=== PATIENT | female | born 1980 | race Caucasian/White ===

== ENCOUNTER → 2016-12-08 | Outpatient (CLI) | payer OTHER ==
--- NOTE | 2017-01-22 01:16 | P.PN ---
Progress Note - Text DATE OF SERVICE: 12/08/2016 REASON FOR CONSULTATION: Initial bariatric evaluation. HISTORY OF PRESENT ILLNESS: Jazmin Sandoval is a 36-year-old female who presents with morbid obesity. Her highest weight was 270 pounds last year. Today she comes in weighing 256 pounds. At her height of 5 foot 5 inches, her ideal body weight is 149 pounds. She is 106 pounds overweight. Her highest body mass index was 45.2. Today her BMI is 42.6. As a result of her obesity, she hsa developed osteoarthritis of her joints including obstructive sleep apnea. She reports being on Adipex for weight control. Since being on Adipex, she is loss 5-10 pounds. As a result of her obesity she has developed back pain including bilateral hip and knee pain. She comes in for evaluation for gastric bypass. She does have family and friend support including who access to those who have had an adjustable gastric band including gastric bypass. She reports however chronic diarrhea. She had a previous cholecystectomy. She reports having a milk ALLERGY. She denies any family or personal history of Crohn's disease or ulcerative colitis. She's not had previous upper endoscopy. She denies any lupus in her family. No reports of stomach or esophageal cancer. She does report that her grandmother had her stomach removed for unclear reasons. She has a family history of morbid obesity including diabetes. She reports underlying troubles with swallowing. As a result of her dysphagia, her thyroid was removed, however, she still has persistent symptoms. She reports having a fairly active lifestyle despite her obesity. She now presents for evaluation for bariatric options. PAST MEDICAL HISTORY: 1. Morbid obesity. 2. Body mass index of 45.2 3. Thyroid neoplasm. 4. Obstructive sleep apnea. 5. Osteoarthritis of the hips 6. Hypertensive heart disease. 7. Gastroesophageal reflux disease 8. Anxiety. 9. Depression. 10. Migraines. 11. Vitamin D deficiency. 12. Hypothyroidism. PAST SURGICAL HISTORY: 1. Cholecystectomy. 2. Left thyroidectomy. 3. Left elbow surgery. 4. Tonsillectomy. 5. Tubal ligation. 6. Eustachian tubes in the ear. HOME MEDICATIONS: 1. Omeprazole. 2. Multivitamin. 3. Synthroid. 4. Vitamin D. ALLERGIES: 1. Latex. 2. Hydrocodone. 3. Adhesives. SOCIAL HISTORY: No active tobacco use. Alcohol use. FAMILY HISTORY: No family history of ulcerative colitis disease or Crohn's disease. She does have a family history of morbid obesity. She denies any lupus in her family. No reports of stomach or esophageal cancer. She does report that her grandmother had her stomach removed for unclear reasons. She has a family history of diabetes. REVIEW OF ORGAN SYSTEMS: CONSTITUTIONAL: Her highest weight was 270 pounds last year. Today she comes in weighing 256 pounds. At her height of 5 foot 5 inches, her ideal body weight is 149 pounds. She is 106 pounds overweight. Her highest body mass index was 45.2. Today her BMI is 42.6. HEENT: Denies any active troubles with vision or hearing. Has troubles with swallowing. ENDOCRINE: No diabetes. Has hypothyroidism. CARDIOVASCULAR: No reports of palpitations or heart attacks or chest pain. History of hypotension. RESPIRATORY: Has daytime somnolence including snoring and sleep apnea. No asthma. GI: Denies any bright red blood per rectum or constipation. Does have gastroesophageal reflux disease as described above. Has diarrhea. MUSCULOSKELETAL: Has lower back pain and joint pain. Has osteoarthritis of the hips and knees. Has scoliosis of the spine. NEURO: Has headaches. No seizure disorders. PSYCH: Has depression without suicidal ideation. Has anxiety. RHEUMATOLOGIC: No lupus. No rheumatoid arthritis. HEMATOLOGIC: Denies any abnormal bleeding or bruising. No personal history of DVTs. SKIN: No rash. No skin cancer. PHYSICAL EXAM: VITAL SIGNS: Height 5 foot 5 inches, weight 255 pounds. BMI 42.6 Vital Signs Temp 98.4 F 12/08/16 16:54 Pulse 75 12/08/16 16:54 Resp 16 12/08/16 16:54 BP 106/71 12/08/16 16:54 Pulse Ox GENERAL: Well-developed female in no acute distress. HEENT: No scleral icterus. Extraocular movements grossly intact. Hears conversational speech. No nasal drainage. NECK: Supple without lymphadenopathy. Well-healed collar incision from previous thyroidectomy. CHEST: Nonlabored respirations with equal bilateral excursions. CARDIOVASCULAR: Regular rate. Distal 2+ pulses. ABDOMEN: Obese, soft, nontender, nondistended. MUSCULOSKELETAL: No clubbing, cyanosis, or edema. Gross strength 5/5 distal lower extremities. NEURO: No focal or lateralizing signs. Cranial nerves 2 through 12 grossly within normal limits. PSYCH: Appropriate affect. Alert and oriented to person, place and time. SKIN: Good skin turgor. Well perfused. ASSESSMENT: 1. Morbid obesity due to excess calories. 2. Body mass index of 45.2 3. Gastroesophageal reflux disease. 4. Obstructive sleep apnea. 5. Thyroid neoplasm. 6. Anxiety. 7. Vitamin D deficiency. 8. Depression. 9. Osteoarthritis involving the bilateral hips. 10. Osteoarthritis of the bilateral knees. 11. Dietary surveillance and counseling. 12. Migraines. 13. Hypothyroidism. PLAN: 1. Surgical options including a band, gastric bypass, sleeve gastrectomy were described in detail. Alternatives such as gastric balloon including duodenal switch were described. 2. The [place] [facility] data and outcomes calculator were described with surgical options. 3. Recommend a bariatric metabolic panel to evaluate for micro- including macronutrient deficiencies. 4. For history of sleep apnea, recommend evaluation and treatment. 5. Dietary surveillance and counseling was reviewed, I have asked her to increase her protein intake to at least 70 grams daily. 6. Will need cardiac risk assessment. 7. Recommend medical risk assessment. 8. Psych assessment per insurance guidelines. 9. Follow up upon completion of upper endoscopy. 10. Recommend food journal. Patient reports having a FITBIT to record activity. 11. Full metabolic panel including drug testing per insurance guidelines. Thank you for this consultation.
== END | disposition home or self-care (01) ==
CPT/HCPCS: 99211

== ENCOUNTER → 2016-12-09 | Outpatient (CLI) | payer OTHER ==
[2016-12-09 13:38] LABS: EKG EKG PERFORMED
[2016-12-09 14:03] LABS: CH 29.8; CHCM 33.7; HCT 37.4 % (34.0-46.0); HDW 2.87; MCH 30.9 pg (25.0-35.0); MCHC 34.9 g/dL (31.0-37.0); MCV 88.7 fL (80.0-100.0); Mean Platelet Volume 7.3; RBC 4.21 m/uL (3.80-5.40); RDW 12.9 % (11.5-15.5); WBC 6.2 k/uL (3.8-10.6)
[2016-12-09 15:12] LABS: ALT 41 U/L (9-52); AST 26 U/L (14-36); Alkaline Phosphatase 60 U/L (38-126); Anion Gap 11 mmol/L; Blood Urea Nitrogen 13 mg/dL (7-17); Calcium 9.7 mg/dL (8.4-10.2); Carbon Dioxide 28 mmol/L (22-30); Chloride 102 mmol/L (98-107); Cholesterol 185 mg/dL (<200); Glucose 107 mg/dL (74-99); HDL Cholesterol 45 mg/dL (40-60); Iron 76 ug/dL (37-170); Non-African American GFR(MDRD) >60 (>60 ml/min/1.73 sqM); Potassium 4.1 mmol/L (3.5-5.1); Sodium 141 mmol/L (137-145); Total Bilirubin 0.5 mg/dL (0.2-1.3); Total Protein 6.6 g/dL (6.3-8.2)
[2016-12-09 15:22] LABS: % Iron Saturation 24.1 % (20-50); Total Iron Binding Capacity 315 ug/dL (265-497)
[2016-12-09 16:19] LABS: Vitamin B12 536 pg/mL (239-931)
[2016-12-09 18:13] LABS: Hemoglobin A1C 5.3 % (4.2-6.1)
[2016-12-13 07:45] LABS: Anabasine Urine <2.0 ng/mL (<2.0)
== END | disposition home or self-care (01) ==
LOC: LABWHC1 13:21
PROVIDERS: ATTEND Surgery Plastic and Reconstructive Surgery
DX: E89.1 Postprocedural hypoinsulinemia (principal); E88.81 Metabolic syndrome and other insulin resistance; D50.8 Other iron deficiency anemias; G47.30 Sleep apnea, unspecified; R94.31 Abnormal electrocardiogram [ECG] [EKG]; E55.9 Vitamin D deficiency, unspecified; E66.01 Morbid (severe) obesity due to excess calories; Z68.42 Body mass index [BMI] 45.0-49.9, adult; Z02.83 Encounter for blood-alcohol and blood-drug test
CPT/HCPCS: 84425; 80061; 80053; 82607; 82728; 83036; 82746; 83540; 83550; 84443; 85027; 82306; 93005; 36415; G0480; 80307; 80323; 80356

== ENCOUNTER → 2016-12-30 | Outpatient (CLI) | payer OTHER ==
[2016-12-30 11:33] VITALS: BP 103/79; PULSE 72; RESP 16; BMI 43.0
--- NOTE | 2017-01-22 22:33 | P.PN ---
Progress Note - Text DATE OF SERVICE: 12/30/2016 CHIEF COMPLAINT: Bariatric evaluation. HISTORY OF PRESENT ILLNESS: Jazmin Sandoval is a 36-year-old female who presented in November 2016 at the bariatric center. Her highest weight was 270 pounds. Today she comes in weighing 258 pounds. She has gained 2 pounds in 1 month. At her height of 5 foot 5 inches, her ideal body weight is 149 pounds. She is 109 pounds overweight. Her highest body mass index was 45.2. Today her BMI is 43.0. She is undergoing medical supervised weight loss. PAST MEDICAL HISTORY: 1. Morbid obesity. 2. Body mass index of 45.2 3. Thyroid neoplasm. 4. Obstructive sleep apnea. 5. Osteoarthritis of the hips 6. Hypertensive heart disease. 7. Gastroesophageal reflux disease 8. Anxiety. 9. Depression. 10. Migraines. 11. Vitamin D deficiency. 12. Hypothyroidism. PAST SURGICAL HISTORY: 1. Cholecystectomy. 2. Left thyroidectomy. 3. Left elbow surgery. 4. Tonsillectomy. 5. Tubal ligation. 6. Eustachian tubes in the ear. HOME MEDICATIONS: 1. Omeprazole. 2. Multivitamin. 3. Synthroid. 4. Vitamin D. ALLERGIES: 1. Latex. 2. Hydrocodone. 3. Adhesives. SOCIAL HISTORY: No active tobacco use. Alcohol use. FAMILY HISTORY: No family history of ulcerative colitis disease or Crohn's disease. She does have a family history of morbid obesity. She denies any lupus in her family. No reports of stomach or esophageal cancer. She does report that her grandmother had her stomach removed for unclear reasons. She has a family history of diabetes. REVIEW OF ORGAN SYSTEMS: CONSTITUTIONAL: Her highest weight was 270 pounds. Today she comes in weighing 258 pounds. She has gained 2 pounds in 1 month. At her height of 5 foot 5 inches, her ideal body weight is 149 pounds. She is 109 pounds overweight. Her highest body mass index was 45.2. Today her BMI is 43.0. HEENT: Denies any active troubles with vision or hearing. Has troubles with swallowing. ENDOCRINE: No diabetes. Has hypothyroidism. CARDIOVASCULAR: No reports of palpitations or heart attacks or chest pain. History of hypotension. RESPIRATORY: Has daytime somnolence including snoring and sleep apnea. No asthma. GI: Denies any bright red blood per rectum or constipation. Does have gastroesophageal reflux disease as described above. Has diarrhea. MUSCULOSKELETAL: Has lower back pain and joint pain. Has osteoarthritis of the hips and knees. Has scoliosis of the spine. NEURO: Has headaches. No seizure disorders. PSYCH: Has depression without suicidal ideation. Has anxiety. RHEUMATOLOGIC: No lupus. No rheumatoid arthritis. HEMATOLOGIC: Denies any abnormal bleeding or bruising. No personal history of DVTs. SKIN: No rash. No skin cancer. PHYSICAL EXAM: VITAL SIGNS: Height 5 foot 5 inches, weight 258 pounds. BMI 43.0 Vital Signs Temp Pulse 72 12/30/16 11:11 Resp 16 12/30/16 11:11 BP 103/79 12/30/16 11:11 Pulse Ox GENERAL: Well-developed female in no acute distress. HEENT: No scleral icterus. Extraocular movements grossly intact. Hears conversational speech. No nasal drainage. NECK: Supple without lymphadenopathy. Neck 15.75 inches. CHEST: Nonlabored respirations with equal bilateral excursions. CARDIOVASCULAR: Regular rate. Distal 2+ pulses. ABDOMEN: Obese, soft, nontender, nondistended. Waist 52.25 inches. MUSCULOSKELETAL: No clubbing, cyanosis, or edema. Gross strength 5/5 distal lower extremities. NEURO: No focal or lateralizing signs. Cranial nerves 2 through 12 grossly within normal limits. PSYCH: Appropriate affect. Alert and oriented to person, place and time. SKIN: Good skin turgor. Well perfused. LABS: Triglycerides elevated 183. Vitamin D deficient 28.3. EKG: Abnormal with questionable anterior infarct. ASSESSMENT: 1. Morbid obesity due to excess calories. 2. Body mass index of 43.0. 3. Gastroesophageal reflux disease. 4. Obstructive sleep apnea. 5. Thyroid neoplasm. 6. Anxiety. 7. Vitamin D deficiency. 8. Depression. 9. Osteoarthritis involving the bilateral hips. 10. Osteoarthritis of the bilateral knees. 11. Dietary surveillance and counseling. 12. Migraines. 13. Hypothyroidism. 14. Abnormal EKG. 15. Metabolic syndrome. PLAN: 1. Recommend referral to the digital strategist for abnormal EKG with possible infarct. 2. Clinical picture consistent with metabolic syndrome. 3. Continue medical supervised weight loss with 10% per insurance requirement. 4. Food journal and exercise advised. 5. Recommend upper endoscopy for further evaluation of gastric pathology.
== END | disposition home or self-care (01) ==
LOC: BARWHC3 10:31
PROVIDERS: ATTEND Surgery Plastic and Reconstructive Surgery
DX: Z09 Encounter for follow-up examination after completed treatment for conditions other than malignant neoplasm (principal); E66.01 Morbid (severe) obesity due to excess calories; Z68.41 Body mass index [BMI] 40.0-44.9, adult; K21.9 Gastro-esophageal reflux disease without esophagitis; G47.33 Obstructive sleep apnea (adult) (pediatric); C73 Malignant neoplasm of thyroid gland; F41.9 Anxiety disorder, unspecified; E55.9 Vitamin D deficiency, unspecified; F32.9 Major depressive disorder, single episode, unspecified; M16.0 Bilateral primary osteoarthritis of hip; M17.0 Bilateral primary osteoarthritis of knee; E03.9 Hypothyroidism, unspecified; G43.909 Migraine, unspecified, not intractable, without status migrainosus; R94.31 Abnormal electrocardiogram [ECG] [EKG]; E88.81 Metabolic syndrome and other insulin resistance; Z71.3 Dietary counseling and surveillance; Z91.040 Latex allergy status; Z88.5 Allergy status to narcotic agent; Z91.09 Other allergy status, other than to drugs and biological substances; Z79.899 Other long term (current) drug therapy; Z98.84 Bariatric surgery status
CPT/HCPCS: 99211

== ENCOUNTER 2017-01-06 11:03 | Day surgery (SDC) | payer OTHER ==
[2017-01-03 14:16] VITALS: BMI 42.9
--- NOTE | 2017-01-06 07:13 | P.GSHP ---
History of Present Illness H&P Date: 01/06/17 CHIEF COMPLAINT: GERD HISTORY OF PRESENT ILLNESS: The patient is a 36-year-old male who presents reports gastroesophageal reflux disease. Upper endoscopy was offered for further evaluation and management. PAST MEDICAL HISTORY: Please see list. PAST SURGICAL HISTORY: Please see list. MEDICATIONS: Please see list. ALLERGIES: Please see list. SOCIAL HISTORY: No illicit drug use FAMILY HISTORY: No reports of Crohn disease or ulcerative colitis. REVIEW OF ORGAN SYSTEMS: CONSTITUTIONAL: No reports of fevers or chills. GI: Denies any blood in stools or constipation. PHYSICAL EXAM: VITAL SIGNS: Stable GENERAL: Well-developed and pleasant in no acute distress. HEENT: No scleral icterus. Extraocular movements grossly intact. Moist buccal mucosa. NECK: Supple without lymphadenopathy. CHEST: Unlabored respirations. Equal bilateral excursions. CARDIOVASCULAR: Regular rate and rhythm. Distal 2+ pulses. ABDOMEN: Soft, nondistended. MUSCULOSKELETAL: No clubbing, cyanosis, or edema. ASSESSMENT: 1. Gastroesophageal reflux disease PLAN: 1. Recommend proceeding with an upper endoscopy Past Medical History Past Medical History: Osteoarthritis (OA), Sleep Apnea/CPAP/BIPAP, Thyroid Disorder Additional Past Medical History / Comment(s): thyroid nodules, hx. anemia, migraines, Sleep Apnea- no machine., neck and lower back pain. History of Any Multi-Drug Resistant Organisms: None Reported Past Surgical History: Cholecystectomy, Orthopedic Surgery, Tonsillectomy, Tubal Ligation Additional Past Surgical History / Comment(s): left elbow surg., cyst removed from neck, LT THYROID LOBECTOMY WITH FROZEN BX. Past Anesthesia/Blood Transfusion Reactions: Family History of Problems w/ Anesthesia, Postoperative Nausea & Vomiting (PONV) Additional Past Anesthesia/Blood Transfusion Reaction / Comment(s): PATIENT HAS PONV AND MIGRAINE HEADACHE. GRANDMOTHER HAS PONV & MIGRAINES ALSO. Past Psychological History: Anxiety, Depression Smoking Status: Never smoker Past Alcohol Use History: Rare Past Drug Use History: None Reported - Past Family History Mother Family Medical History: Cancer Additional Family Medical History / Comment(s): MS Father Family Medical History: Hyperlipidemia Medications and Allergies Home Medications Medication Instructions Recorded Confirmed Type Cholecalciferol (Vitamin D3) 50,000 unit PO WEEKLY 12/30/16 01/03/17 History [Vitamin D3] Levothyroxine Sodium [Synthroid] 200 mcg PO DAILY 12/30/16 01/03/17 History Multivitamins, Thera [Multivitamin 1 tab PO DAILY 01/03/17 01/03/17 History (formulary)] Allergies Allergy/AdvReac Type Severity Reaction Status Date / Time hydrocodone bitartrate Allergy tongue Verified 01/03/17 13:55 [From Vicodin] swelling latex Allergy Rash/Hives Verified 01/03/17 13:55 adhesive AdvReac blisters,red Verified 01/03/17 13:55 skin
[~2017-01-06 11:03] MED LIST: LACTATED RINGERS 1,000 ML IV SCH; LIDOCAINE 1% 20 ML VIAL (10MG/ML) FOR IV START INTRADERMA PRN
[2017-01-06 11:38] VITALS: TEMP 98.2
[2017-01-06] MEDS ORDERED: LIDOCAINE 1% INJ 10MG/ML (20 ML MDV) ONE (11:59)
[2017-01-06] MEDS ORDERED: GLYCOPYRROLATE 0.2 MG/ML 2 ML VIAL ONE (11:59)
[2017-01-06] MEDS ORDERED: PROPOFOL 10 MG/ML 20 ML VIAL IV ONE (11:59)
--- NOTE | 2017-01-06 12:10 | P.PCN ---
Date of Procedure: 01/06/17 Description of Procedure: PREOPERATIVE DIAGNOSIS: Gastroesophageal reflux disease. Morbid obesity. POSTOPERATIVE DIAGNOSIS: Morbid obesity. Gastritis. Gastroesophageal reflux disease. OPERATION: Esophagogastroduodenoscopy with biopsies along antrum. SURGEON: Shalini Castañeda MD ANESTHESIA: MAC. INDICATIONS: The patient is a 36-year-old female who presents with a history of reflux disease. Benefits and risks of the procedure were described. Informed consent was obtained. DESCRIPTION: The patient was brought into the endoscopy suite and laid in the left lateral decubitus position. An Olympus gastroscope was passed along the posterior oropharynx down to the distal esophagus where the squamocolumnar junction was encountered at 40 cm from the incisors. The stomach was entered and no bile reflux was found. Additional findings are listed below. Biopsies with cold forceps were obtained of the antrum. The first through third portion of the duodenum was examined and unremarkable. Retroflexion of the scope confirmed Hill grade 4 lower esophageal valve. The squamocolumnar junction demostrated LA grade B erosive esophagitis. The stomach was desufflated. The patient tolerated the procedure well. FINDINGS: Squamocolumnar junction 40 cm from the incisors. Diaphragmatic hiatus at 40 cm. Hill grade 4 lower esophageal valve. LA grade B erosive esophagitis. Chronic gastritis. No active duodenitis. RECOMMENDATIONS: Upper endoscopy as needed. Start medical therapy for acid reflux disease. Plan - Discharge Summary New Discharge Prescriptions: No Action Levothyroxine Sodium [Synthroid] 200 mcg PO DAILY Cholecalciferol (Vitamin D3) [Vitamin D3] 50,000 unit PO WEEKLY Multivitamins, Thera [Multivitamin (formulary)] 1 tab PO DAILY Discharge Medication List Cholecalciferol (Vitamin D3) [Vitamin D3] 50,000 unit PO WEEKLY 12/30/16 [ History] Levothyroxine Sodium [Synthroid] 200 mcg PO DAILY 12/30/16 [History] Multivitamins, Thera [Multivitamin (formulary)] 1 tab PO DAILY 01/03/17 [History ]
[2017-01-06 12:21] VITALS: BP 101/65
[2017-01-06 12:35] VITALS: PULSE 72; RESP 18
== END 2017-01-06 12:52 | disposition home or self-care (01) ==
LOC: ORWHC2ENDO 11:03
PROVIDERS: ATTEND Surgery Plastic and Reconstructive Surgery
DX: K21.0 Gastro-esophageal reflux disease with esophagitis (principal); E66.01 Morbid (severe) obesity due to excess calories; Z68.41 Body mass index [BMI] 40.0-44.9, adult; F32.9 Major depressive disorder, single episode, unspecified; F41.9 Anxiety disorder, unspecified; M19.90 Unspecified osteoarthritis, unspecified site; G47.33 Obstructive sleep apnea (adult) (pediatric); E07.9 Disorder of thyroid, unspecified; K29.50 Unspecified chronic gastritis without bleeding; Z99.89 Dependence on other enabling machines and devices; Z79.899 Other long term (current) drug therapy; Z88.5 Allergy status to narcotic agent; Z88.8 Allergy status to other drugs, medicaments and biological substances; Z91.040 Latex allergy status
CPT/HCPCS: 81025; 88305; 88342; 43239; J2001; J2704

== ENCOUNTER → 2017-03-02 | Outpatient (CLI) | payer OTHER ==
[2017-03-02 13:06] VITALS: BP 116/84; PULSE 74; RESP 16; TEMP 97.5; BMI 43.4
--- NOTE | 2017-04-25 18:08 | P.PN ---
Subjective Progress Note Date: 03/02/17 DATE OF SERVICE: 03/02/2017 CHIEF COMPLAINT: Bariatric evaluation. HISTORY OF PRESENT ILLNESS: Jazmin Sandoval is a 37-year-old female who presented in November 2016 at the bariatric center. Her highest weight was 270 pounds. Today she comes in weighing 268 pounds. She has gained 10 pounds in 2 months. At her height of 5 foot 5 inches, her ideal body weight is 149 pounds. She is 119 pounds overweight. Her highest body mass index was 45.2. Today her BMI is 44.7. Her target weight loss goal is to get down to 221 pounds. She reports requiring to undergo 6 medical supervised weight loss. She denies any chest pain at this time. She has history of abnormal EKG. PAST MEDICAL HISTORY: 1. Morbid obesity. 2. Body mass index of 45.2 3. Thyroid neoplasm. 4. Obstructive sleep apnea. 5. Osteoarthritis of the hips 6. Hypertensive heart disease. 7. Gastroesophageal reflux disease 8. Anxiety. 9. Depression. 10. Migraines. 11. Vitamin D deficiency. 12. Hypothyroidism. PAST SURGICAL HISTORY: 1. Cholecystectomy. 2. Left thyroidectomy. 3. Left elbow surgery. 4. Tonsillectomy. 5. Tubal ligation. 6. Eustachian tubes in the ear. HOME MEDICATIONS: 1. Omeprazole. 2. Multivitamin. 3. Synthroid. 4. Vitamin D. ALLERGIES: 1. Latex. 2. Hydrocodone. 3. Adhesives. SOCIAL HISTORY: No active tobacco use. Alcohol use. FAMILY HISTORY: No family history of ulcerative colitis disease or Crohn's disease. She does have a family history of morbid obesity. She denies any lupus in her family. No reports of stomach or esophageal cancer. She does report that her grandmother had her stomach removed for unclear reasons. She has a family history of diabetes. REVIEW OF ORGAN SYSTEMS: CONSTITUTIONAL: Her highest weight was 270 pounds. Today she comes in weighing 268 pounds. She has gained 10 pounds in 2 months. At her height of 5 foot 5 inches, her ideal body weight is 149 pounds. She is 119 pounds overweight. Her highest body mass index was 45.2. Today her BMI is 44.7. HEENT: Denies any active troubles with vision or hearing. Has troubles with swallowing. ENDOCRINE: No diabetes. Has hypothyroidism. CARDIOVASCULAR: No reports of palpitations or heart attacks or chest pain. History of hypotension. RESPIRATORY: Has daytime somnolence including snoring and sleep apnea. No asthma. GI: Denies any bright red blood per rectum or constipation. Does have gastroesophageal reflux disease as described above. Has diarrhea. MUSCULOSKELETAL: Has lower back pain and joint pain. Has osteoarthritis of the hips and knees. Has scoliosis of the spine. NEURO: Has headaches. No seizure disorders. PSYCH: Has depression without suicidal ideation. Has anxiety. RHEUMATOLOGIC: No lupus. No rheumatoid arthritis. HEMATOLOGIC: Denies any abnormal bleeding or bruising. No personal history of DVTs. SKIN: No rash. No skin cancer. PHYSICAL EXAM: VITAL SIGNS: Height 5 foot 5 inches, weight 268 pounds. BMI 44.7 Vital Signs Temp 97.5 F L 03/02/17 12:59 Pulse 74 03/02/17 12:59 Resp 16 03/02/17 12:59 BP 116/84 03/02/17 12:59 Pulse Ox GENERAL: Well-developed female in no acute distress. HEENT: No scleral icterus. Extraocular movements grossly intact. Hears conversational speech. No nasal drainage. NECK: Supple without lymphadenopathy. Neck 15.75 inches. CHEST: Nonlabored respirations with equal bilateral excursions. CARDIOVASCULAR: Regular rate. Distal 2+ pulses. ABDOMEN: Obese, soft, nontender, nondistended. Waist 52.25 inches. MUSCULOSKELETAL: No clubbing, cyanosis, or edema. Gross strength 5/5 distal lower extremities. NEURO: No focal or lateralizing signs. Cranial nerves 2 through 12 grossly within normal limits. PSYCH: Appropriate affect. Alert and oriented to person, place and time. SKIN: Good skin turgor. Well perfused. EKG: Abnormal with questionable anterior infarct. Final Pathologic Diagnosis GASTRIC ANTRUM, BIOPSY: MILD CHRONIC GASTRITIS. IMMUNOPEROXIDASE STAIN NEGATIVE FOR HELICOBACTER PYLORI ORGANISMS (CONTROLS APPROPRIATE). EGD FINDINGS: Squamocolumnar junction 40 cm from the incisors. Diaphragmatic hiatus at 40 cm. Hill grade 4 lower esophageal valve. LA grade B erosive esophagitis. Chronic gastritis. No active duodenitis. ASSESSMENT: 1. Morbid obesity due to excess calories. 2. Body mass index of 45 down to 44.7. 3. Gastroesophageal reflux disease. 4. Obstructive sleep apnea. 5. Thyroid neoplasm. 6. Anxiety. 7. Vitamin D deficiency. 8. Depression. 9. Osteoarthritis involving the bilateral hips. 10. Osteoarthritis of the bilateral knees. 11. Dietary surveillance and counseling. 12. Migraines. 13. Hypothyroidism. 14. Abnormal EKG. 15. Metabolic syndrome. PLAN: 1. Recommend 2 weeks high protein low caloric diet. 2. Medical supervised weight loss 6 months advised. 3. Follow up with 3rd mate history of abnormal EKG. 4. Food journal and exercise advised. Objective - Vital Signs Vital signs: Vital Signs Temp 97.5 F L 03/02/17 12:59 Pulse 74 03/02/17 12:59 Resp 16 03/02/17 12:59 BP 116/84 03/02/17 12:59 Pulse Ox Intake & Output 03/01/17 03/02/17 03/02/17 18:59 06:59 18:59 Weight 118.614 kg
== END ==
LOC: BARWHC3 12:45
PROVIDERS: ATTEND Surgery Plastic and Reconstructive Surgery
DX: Z48.815 Encounter for surgical aftercare following surgery on the digestive system (principal); E66.01 Morbid (severe) obesity due to excess calories; K21.9 Gastro-esophageal reflux disease without esophagitis; G47.33 Obstructive sleep apnea (adult) (pediatric); C73 Malignant neoplasm of thyroid gland; F41.9 Anxiety disorder, unspecified; E55.9 Vitamin D deficiency, unspecified; F32.9 Major depressive disorder, single episode, unspecified; M16.0 Bilateral primary osteoarthritis of hip; M17.0 Bilateral primary osteoarthritis of knee; G43.909 Migraine, unspecified, not intractable, without status migrainosus; E03.9 Hypothyroidism, unspecified; R94.31 Abnormal electrocardiogram [ECG] [EKG]; E88.81 Metabolic syndrome and other insulin resistance; Z68.41 Body mass index [BMI] 40.0-44.9, adult; Z79.899 Other long term (current) drug therapy; Z71.3 Dietary counseling and surveillance; Z91.040 Latex allergy status; Z88.5 Allergy status to narcotic agent; Z91.09 Other allergy status, other than to drugs and biological substances; Z90.49 Acquired absence of other specified parts of digestive tract; Z98.890 Other specified postprocedural states; Z90.89 Acquired absence of other organs; Z98.84 Bariatric surgery status
CPT/HCPCS: 99211

== ENCOUNTER → 2017-04-28 | Outpatient (CLI) | payer OTHER ==
--- NOTE | 2017-04-28 14:47 | XR ---
EXAM TYPE: LUMBAR SPINE X RAY SERIES COMPARISON: NONE HISTORY: Pain TECHNIQUE: 3 views are submitted. FINDINGS: Alignment is anatomic. The pedicles are intact. The transverse processes are intact. There is no s pondylolysis or spondylolisthesis. Surgical clip in the gallbladder fossa noted. Hypertrophic change and degenerative disc disease at levels L3-S1. IMPRESSION: 1. Multilevel mild hypertrophic and degenerative change..
--- NOTE | 2017-04-28 14:48 | XR ---
EXAMINATION TYPE: XR pelvis AP view DATE OF EXAM: 04/28/2017 COMPARISON: NONE HISTORY: Pain The osseous structures are intact and the joint spaces are preserved. No acute fracture is seen. Vi sualized bowel gas pattern is nonspecific. Surgical clips in the pelvis noted. One of the clips appe ar somewhat high in position within the left abdomen and may no longer be associated with fallopian t ube should be correlated clinically. Calcification the pelvis are nonspecific but likely vascular. IMPRESSION: 1. No process. If symptoms persist consider MRI. See above.
== END | disposition home or self-care (01) ==
LOC: RADXRMAIN 14:18
PROVIDERS: ATTEND Internal Medicine
DX: M47.816 Spondylosis without myelopathy or radiculopathy, lumbar region (principal); M25.551 Pain in right hip
CPT/HCPCS: 72100; 72170

== ENCOUNTER → 2017-07-26 | Outpatient (CLI) | payer OTHER ==
[2017-07-26 09:47] VITALS: BMI 44.1
== END | disposition home or self-care (01) ==
LOC: MNTWWP 09:12
PROVIDERS: ATTEND Surgery Plastic and Reconstructive Surgery
DX: E66.01 Morbid (severe) obesity due to excess calories (principal); Z68.41 Body mass index [BMI] 40.0-44.9, adult
CPT/HCPCS: 97802

== ENCOUNTER → 2017-08-23 | Outpatient (CLI) | payer OTHER ==
[2017-08-23 09:23] VITALS: BMI 44.2
== END | disposition home or self-care (01) ==
LOC: MNTWWP 08:55
PROVIDERS: ATTEND Surgery Plastic and Reconstructive Surgery
DX: E66.01 Morbid (severe) obesity due to excess calories (principal)
CPT/HCPCS: 97803

== ENCOUNTER 2019-08-29 23:16 | Emergency (ER) | payer OTHER ==
[2019-08-30] MEDS ORDERED: DICYCLOMINE 10 MG/ML 2 ML AMP IM ONE (01:00)
[2019-08-30] MEDS ORDERED: SODIUM CHLORIDE 0.9% 1,000 ML BAG ONE (01:00)
[2019-08-30] MEDS ORDERED: PANTOPRAZOLE 40 MG/10 ML VIAL ONE (01:00)
[2019-08-30] MEDS ORDERED: ONDANSETRON 4 MG/2 ML VIAL ONE (01:00)
[2019-08-30] MEDS ORDERED: KETOROLAC 30 MG/ML 1 ML VIAL ONE (01:00)
[2019-08-30 05:17] LABS: Basophils % (A) 1 %; Eosinophils # (A) 0.1 k/uL (0-0.7); Eosinophils % (A) 1 %; HCT 39.6 % (34.0-46.0); HGB 12.9 gm/dL (11.4-16.0); Lymphocytes # (A) 2.1 k/uL (1.0-4.8); Lymphocytes % (A) 26 %; MCH 29.6 pg (25.0-35.0); MCHC 32.6 g/dL (31.0-37.0); MCV 90.9 fL (80.0-100.0); Mean Platelet Volume 7.6; Monocytes # (A) 0.4 k/uL (0-1.0); Monocytes % (A) 4 %; Neutrophils # (A) 5.2 k/uL (1.3-7.7); Neutrophils % (A) 66 %; Platelet Count 296 k/uL (150-450); RBC 4.36 m/uL (3.80-5.40); RDW 13.4 % (11.5-15.5); WBC 7.9 k/uL (3.8-10.6)
[2019-08-30 05:20] LABS: Appearance,Urine Clear (Clear); Bilirubin,Urine Negative (Negative); Blood,Urine Negative (Negative); Color,Urine Yellow; Glucose,Urine (UA) Negative (Negative); Ketones,Urine Negative (Negative); Leukocyte Esterase,Urine Negative (Negative); Mucus,Urine Rare /hpf; Nitrite,Urine Negative (Negative); Protein,Urine Trace (Negative); RBC,Urine 1 /hpf (0-5); Specific Gravity,Urine 1.027 (1.001-1.035); Squamous Epithelial Cell,Urine 8 /hpf (0-4); Urobilinogen,Urine <2.0 mg/dL (<2.0); WBC,Urine 4 /hpf (0-5)
[2019-08-30 05:53] LABS: ALT 45 U/L (4-34); AST 35 U/L (14-36); African American GFR (CKD) >90 (>60 ml/min/1.73 sqM); Alkaline Phosphatase 74 U/L (38-126); Anion Gap 5 mmol/L; Blood Urea Nitrogen 15 mg/dL (7-17); Calcium 9.3 mg/dL (8.4-10.2); Carbon Dioxide 27 mmol/L (22-30); Chloride 103 mmol/L (98-107); Glucose 103 mg/dL (74-99); Magnesium 1.9 mg/dL (1.6-2.3); Non-African American GFR(CKD) 79 (>60 ml/min/1.73 sqM); Phosphorus 3.7 mg/dL (2.5-4.5); Potassium 4.2 mmol/L (3.5-5.1); Sodium 135 mmol/L (137-145); Total Bilirubin 0.3 mg/dL (0.2-1.3); Total Protein 6.7 g/dL (6.3-8.2)
--- NOTE | 2019-08-30 06:40 | CT ---
EXAM: CT Abdomen and Pelvis With Intravenous Contrast CLINICAL HISTORY: RUQ pain TECHNIQUE: Axial computed tomography images of the abdomen and pelvis with intravenous contrast. CTDI is 0.242, 0.242, 23.2, 19.8 mGy and DLP is 2134.4 mGy-cm. This CT exam was performed using one or more of the following dose reduction techniques: automated exposure control, adjustment of the mA and/or kV according to patient size, and/or use of iterative reconstruction technique. COMPARISON: No relevant prior studies available. FINDINGS: Lung bases: No significant abnormality. ABDOMEN: Liver: Hepatomegaly. Gallbladder and bile ducts: Gallbladder is surgically absent. Pancreas: No significant abnormality. Spleen: No significant abnormality. Adrenals: No significant abnormality. Kidneys and ureters: No significant abnormality. No hydronephrosis. Stomach and bowel: No significant abnormality. Bowel is nondilated. PELVIS: Appendix: No findings to suggest acute appendicitis. Bladder: No significant abnormality. Reproductive: A 2.7 cm crenated left adnexal cystic structure is likely physiologic. Left tubal ligation clip. Presumed malpositioned right tubal ligation clip in the anterior left pelvis. ABDOMEN and PELVIS: Intraperitoneal space: No significant abnormality. No free air. Bones/joints: No acute fracture or malalignment. Soft tissues: No significant abnormality. Vasculature: No significant abnormality. No abdominal aortic aneurysm. Lymph nodes: No significant abnormality. IMPRESSION: 1. A 2.7 cm crenated left adnexal cystic structure is likely physiologic. 2. Left tubal ligation clip. Presumed malpositioned right tubal ligation clip in the anterior left pelvis.
== END 2019-08-30 05:53 | disposition home or self-care (01) ==
LOC: EC 23:16
DX: R10.32 Left lower quadrant pain (principal); R10.13 Epigastric pain; Z90.49 Acquired absence of other specified parts of digestive tract; Z88.5 Allergy status to narcotic agent; Z91.040 Latex allergy status; Z91.048 Other nonmedicinal substance allergy status
CPT/HCPCS: 36415; 80053; 83690; 83735; 84100; 84484; 85025; 81003; 74177; 99284; 96374; 96375; 96361 ×2; 96372; J0500; J2405; J1885; C9113; Q9967

== ENCOUNTER 2019-10-09 14:45 | Emergency (ER) | payer OTHER ==
[2019-10-09 14:49] VITALS: TEMP 98.1
[2019-10-09] MEDS ORDERED: MORPHINE SULFATE 4 MG/ML SYRINGE IM STA (15:02)
--- NOTE | 2019-10-09 15:05 | ED ---
Upper Extremity HPI - General Chief Complaint: Extremity Injury, Upper Stated Complaint: Fall, R shoulder injury Time Seen by Provider: 10/09/19 14:50 Source: patient Mode of arrival: ambulatory Limitations: no limitations - History of Present Illness Initial Comments: Patient is a 39-year-old female presenting to the emergency department with a chief complaint of right shoulder pain. Patient states she rolled off at this morning and following the right side of her body. Patient denies any head trauma or loss of consciousness. Patient reports most of the pain is located along the anterior lateral aspect of the right shoulder. Patient states she is unable to abduction the arm. Patient also reports pain when she is attempting to push off with the right arm. Patient denies any bruising but does report some swelling around the right shoulder. Patient denies any numbness or tingling. Denies any pain along the humerus or distal to that. Denies taking medication to alleviate the symptoms. States incident occurred about half hour prior to arrival. - Related Data Home Medications Medication Instructions Recorded Confirmed Levothyroxine Sodium [Synthroid] 200 mcg PO DAILY 12/30/16 06/01/17 Allergies Allergy/AdvReac Type Severity Reaction Status Date / Time hydrocodone bitartrate Allergy tongue Verified 06/01/17 15:20 [From Vicodin] swelling iodine Allergy Rash/Hives Verified 10/09/19 14:50 latex Allergy Rash/Hives Verified 06/01/17 15:20 shellfish derived [Shellfish] Allergy Swelling Verified 10/09/19 14:50 adhesive AdvReac blisters,red Verified 06/01/17 15:20 skin Review of Systems ROS Statement: Those systems with pertinent positive or pertinent negative responses have been documented in the HPI. ROS Other: All systems not noted in ROS Statement are negative. Past Medical History Past Medical History: Osteoarthritis (OA), Sleep Apnea/CPAP/BIPAP, Thyroid Disorder Additional Past Medical History / Comment(s): thyroid nodules, hx. anemia, migraines, Sleep Apnea- no machine., neck and lower back pain. History of Any Multi-Drug Resistant Organisms: None Reported Past Surgical History: Cholecystectomy, Orthopedic Surgery, Tonsillectomy, Tubal Ligation Additional Past Surgical History / Comment(s): left elbow surg., cyst removed from neck, LT THYROID LOBECTOMY WITH FROZEN BX. Past Anesthesia/Blood Transfusion Reactions: Family History of Problems w/ Anesthesia, Postoperative Nausea & Vomiting (PONV) Additional Past Anesthesia/Blood Transfusion Reaction / Comment(s): PATIENT HAS PONV AND MIGRAINE HEADACHE. GRANDMOTHER HAS PONV & MIGRAINES ALSO. Past Psychological History: Anxiety, Depression Smoking Status: Never smoker Past Alcohol Use History: Rare Past Drug Use History: None Reported - Past Family History Mother Family Medical History: Cancer Additional Family Medical History / Comment(s): MS Father Family Medical History: Hyperlipidemia General Exam Limitations: no limitations General appearance: alert, in no apparent distress Head exam: Present: atraumatic, normocephalic, normal inspection. Absent: other (No head trauma.) Eye exam: Present: normal appearance, PERRL, EOMI Pupils: Present: normal accommodation ENT exam: Present: normal exam, normal oropharynx, mucous membranes moist Neck exam: Present: normal inspection, full ROM. Absent: tenderness Respiratory exam: Present: normal lung sounds bilaterally. Absent: respiratory distress, wheezes Cardiovascular Exam: Present: regular rate, normal rhythm, normal heart sounds Extremities exam: Present: normal inspection, tenderness (Tenderness along the anterior lateral aspect of her right shoulder. Small palpable bony deformity of right distal clavicle.), normal capillary refill, other (+2 ulnar and radial pulses bilateral. No pain along the right humerus.). Absent: full ROM (Limited range of motion with abduction flexion and extension of the right shoulder due to pain.) Course Vital Signs 10/09/19 10/09/19 10/09/19 14:46 14:49 16:52 Temperature 98.1 F Pulse Rate 76 71 Respiratory 18 18 20 Rate Blood Pressure 128/84 120/78 O2 Sat by Pulse 100 98 Oximetry Medical Decision Making - Medical Decision Making Patient is a 39-year-old female presenting to the emergency department with a chief complaint of right shoulder injury. Her was no head trauma or loss of consciousness. On exam patient has tenderness along the anterior lateral aspect of her right shoulder. Limited range of motion due to pain. Neurovascularly intact in the right upper extremity. No signs of paraspinal midcervical tenderness. Patient was given analgesia in the ED. X-ray reveals no signs of fractures or dislocations. I do suspect possible rotator cuff injury. Patient advised to follow with medicare contact specialist. She was advised to take [id number] analgesics to help with pain. Strict return parameters were thoroughly discussed with patient was understanding and agreeable. Case discussed with physician. Disposition Clinical Impression: Contusion of right shoulder Disposition: HOME SELF-CARE Condition: Good Instructions (If sedation given, give patient instructions): Rotator Cuff Injury (ED) Additional Instructions: Follow-up with an medicare contact specialist. Do not drive or operate heavy machinery when taking the medication. Return to emergency department if symptoms worsen. Apply ice compress. Is patient prescribed a controlled substance at d/c from ED?: No Referrals: None,Stated [Primary Care Provider] - 1-2 days Moises Molina MD [STAFF PHYSICIAN] - 1-2 days Time of Disposition: 16:16
--- NOTE | 2019-10-09 15:37 | XR ---
Right shoulder HISTORY: Trauma and pain 3 views of the right shoulder Acromioclavicular joint shows mild hypertrophic change. Alignment, joint spaces, bone mineralization are normal. Right lung apex as visualized is unremarkable. IMPRESSION: No fracture or dislocation.
[2019-10-09] MEDS ORDERED: ACET/COD 300 MG/30 MG STARTER PACK 6 TAB BTL PO STA (16:17)
[2019-10-09 16:54] VITALS: BP 120/78; PULSE 71; RESP 20
== END 2019-10-09 16:54 | disposition home or self-care (01) ==
LOC: EC 14:45
DX: S40.011A Contusion of right shoulder, initial encounter (principal); G47.30 Sleep apnea, unspecified; E07.9 Disorder of thyroid, unspecified; Z79.890 Hormone replacement therapy; Z88.5 Allergy status to narcotic agent; Z91.048 Other nonmedicinal substance allergy status; Z91.040 Latex allergy status; Z91.013 Allergy to seafood; Z99.89 Dependence on other enabling machines and devices; W17.89XA Other fall from one level to another, initial encounter
CPT/HCPCS: 96372; 99283; 73030; J2270

== ENCOUNTER 2019-10-19 17:43 | Emergency (ER) | payer OTHER ==
[2019-10-19] MEDS ORDERED: ONDANSETRON 4 MG/2 ML VIAL IVP STA (18:10)
[2019-10-19] MEDS ORDERED: SODIUM CHLORIDE 0.9% 1,000 ML IV STA ×2 (18:10→18:35)
[2019-10-19] MEDS ORDERED: PANTOPRAZOLE 40 MG/10 ML VIAL IVP ONE (18:10)
--- NOTE | 2019-10-19 18:24 | ED ---
General Adult HPI - General Chief complaint: Nausea/Vomiting/Diarrhea Stated complaint: Dehydration Time Seen by Provider: 10/19/19 18:10 Source: patient Mode of arrival: ambulatory Limitations: no limitations - History of Present Illness Initial comments: Dictation was produced using [employer] dictation software. please excuse any grammatical, word or spelling errors. This patient was cared for during a federal and state declared state of emergen cy secondary to Covid 19 Chief Complaint: 39-year-old female postop day 3 status post bariatric surgery presents with abdominal pain History of Present Illness: Patient is a 39-year-old female presents today with abdominal cramping. Patient states that since his surgery 3 days ago she's been having persistent abdominal cramping. She notices that her symptoms are really bad with any sort of oral intake especially fluids. She feels as if there is like a gas bubble in her epigastric area. She denies any fever, chills or night sweats. She has no other medical complaints. She contacted her primary surgeon and she was told to come to the emergency department for medical evaluation. The ROS documented in this emergency department record has been reviewed and confirmed by me. Those systems with pertinent positive or negative responses have been documented in the HPI. All other systems are other negative and/or noncontributory. PHYSICAL EXAM: General Impression: Alert and oriented x3, acute distress secondary to pain HEENT: Normocephalic atraumatic, extra-ocular movements intact, pupils equal and reactive to light bilaterally, mucous membranes moist. Cardiovascular: Heart regular rate and rhythm Chest: Able to complete full sentences, no retractions, no tachypnea Abdomen: abdomen soft, diffuse abdominal tenderness, surgical sites clean dry and intact Musculoskeletal: Pulses present and equal in all extremities, no peripheral edema Motor: no focal deficits noted Neurological: CN II-XII grossly intact, no focal motor or sensory deficits noted Skin: Intact with no visualized rashes Psych: Normal affect and mood ED course: 39-year-old female postop day 3 status post bariatric surgery presents with abdominal pain. Vital signs upon arrival are within acceptable limits. Discussed patient case with Mr. Nirmal Perez who is a physician entry level marketing assistant for Dr. Armstrong patient's primary surgeon. He reports to me that she was intended to be sent to an infusion center for parenteral treatment. He request that patient be given 2 L of IV fluids, 10 mg of Decadron and 4 mg of Zofran. He does not recommend doing any CT imaging at this time. He also requested basic labs be ordered. Return evaluation obtained. CBC, metabolic panel is unremarkable. Lipase slightly elevated 545. Patient reevaluated after administration of fluids Decadron and Zofran. Patient states she feels much better. Patient will be discharged per she is advised to follow-up with primary surgeon. Return parameters discussed. Patient discharged. - Related Data Home Medications Medication Instructions Recorded Confirmed Levothyroxine Sodium [Synthroid] 200 mcg PO DAILY 12/30/16 06/01/17 Allergies Allergy/AdvReac Type Severity Reaction Status Date / Time hydrocodone bitartrate Allergy tongue Verified 10/19/19 17:56 [From Vicodin] swelling iodine Allergy Rash/Hives Verified 10/19/19 17:56 latex Allergy Rash/Hives Verified 10/19/19 17:56 shellfish derived [Shellfish] Allergy Swelling Verified 10/19/19 17:56 adhesive AdvReac blisters,red Verified 10/19/19 17:56 skin Review of Systems ROS Statement: Those systems with pertinent positive or pertinent negative responses have been documented in the HPI. ROS Other: All systems not noted in ROS Statement are negative. Past Medical History Past Medical History: Osteoarthritis (OA), Sleep Apnea/CPAP/BIPAP, Thyroid Disorder Additional Past Medical History / Comment(s): thyroid nodules, hx. anemia, migraines, Sleep Apnea- no machine., neck and lower back pain. History of Any Multi-Drug Resistant Organisms: None Reported Past Surgical History: Cholecystectomy, Orthopedic Surgery, Tonsillectomy, Tubal Ligation Additional Past Surgical History / Comment(s): left elbow surg., cyst removed from neck, LT THYROID LOBECTOMY WITH FROZEN BX., gastric bypass Past Anesthesia/Blood Transfusion Reactions: Family History of Problems w/ Anesthesia, Postoperative Nausea & Vomiting (PONV) Additional Past Anesthesia/Blood Transfusion Reaction / Comment(s): PATIENT HAS PONV AND MIGRAINE HEADACHE. GRANDMOTHER HAS PONV & MIGRAINES ALSO. Past Psychological History: Anxiety, Depression Smoking Status: Never smoker Past Alcohol Use History: Rare Past Drug Use History: None Reported - Past Family History Mother Family Medical History: Cancer Additional Family Medical History / Comment(s): MS Father Family Medical History: Hyperlipidemia General Exam Limitations: no limitations Course Vital Signs 10/19/19 10/19/19 10/19/19 17:53 19:56 21:00 Temperature 98.4 F Pulse Rate 72 88 71 Respiratory 18 20 20 Rate Blood Pressure 106/76 156/72 99/56 O2 Sat by Pulse 99 99 99 Oximetry Medical Decision Making - Lab Data Result diagrams: 10/19/19 19:15 10/19/19 19:15 Lab Results 10/19/19 10/19/19 Range/Units 19:15 19:15 WBC 8.1 (3.8-10.6) k/uL RBC 4.23 (3.80-5.40) m/uL Hgb 12.3 (11.4-16.0) gm/dL Hct 38.1 (34.0-46.0) % MCV 90.2 (80.0-100.0) fL MCH 29.1 (25.0-35.0) pg MCHC 32.3 (31.0-37.0) g/dL RDW 13.1 (11.5-15.5) % Plt Count 240 (150-450) k/uL Neutrophils % 67 % Lymphocytes % 26 % Monocytes % 5 % Eosinophils % 1 % Basophils % 0 % Neutrophils # 5.4 (1.3-7.7) k/uL Lymphocytes # 2.1 (1.0-4.8) k/uL Monocytes # 0.4 (0-1.0) k/uL Eosinophils # 0.1 (0-0.7) k/uL Basophils # 0.0 (0-0.2) k/uL Sodium 135 L (137-145) mmol/L Potassium 4.0 (3.5-5.1) mmol/L Chloride 100 (98-107) mmol/L Carbon Dioxide 28 (22-30) mmol/L Anion Gap 7 mmol/L BUN 16 (7-17) mg/dL Creatinine 0.85 (0.52-1.04) mg/dL Est GFR (CKD-EPI)AfAm >90 (>60 ml/min/1.73 sqM) Est GFR (CKD-EPI)NonAf 88 (>60 ml/min/1.73 sqM) Glucose 87 (74-99) mg/dL Calcium 9.0 (8.4-10.2) mg/dL Magnesium 1.9 (1.6-2.3) mg/dL Lipase 545 H (23-300) U/L Disposition Clinical Impression: Abdominal pain Disposition: HOME SELF-CARE Condition: Good Instructions (If sedation given, give patient instructions): Abdominal Pain (ED) Additional Instructions: Follow-up with your bariatric surgeon. Is patient prescribed a controlled substance at d/c from ED?: No Time of Disposition: 22:41
[2019-10-19] MEDS ORDERED: DEXAMETHASONE SOD PHOSPHATE 10 MG/ML 1 ML VIAL IV STA (18:35)
[2019-10-19 19:27] LABS: Basophils % (A) 0 %; Eosinophils # (A) 0.1 k/uL (0-0.7); Eosinophils % (A) 1 %; HCT 38.1 % (34.0-46.0); HGB 12.3 gm/dL (11.4-16.0); Lymphocytes # (A) 2.1 k/uL (1.0-4.8); Lymphocytes % (A) 26 %; MCH 29.1 pg (25.0-35.0); MCHC 32.3 g/dL (31.0-37.0); MCV 90.2 fL (80.0-100.0); Mean Platelet Volume 7.6; Monocytes # (A) 0.4 k/uL (0-1.0); Monocytes % (A) 5 %; Neutrophils # (A) 5.4 k/uL (1.3-7.7); Neutrophils % (A) 67 %; Platelet Count 240 k/uL (150-450); RBC 4.23 m/uL (3.80-5.40); RDW 13.1 % (11.5-15.5); WBC 8.1 k/uL (3.8-10.6)
[2019-10-19 19:35] LABS: African American GFR (CKD) >90 (>60 ml/min/1.73 sqM); Anion Gap 7 mmol/L; Blood Urea Nitrogen 16 mg/dL (7-17); Carbon Dioxide 28 mmol/L (22-30); Chloride 100 mmol/L (98-107); Glucose 87 mg/dL (74-99); Magnesium 1.9 mg/dL (1.6-2.3); Non-African American GFR(CKD) 88 (>60 ml/min/1.73 sqM); Sodium 135 mmol/L (137-145)
[2019-10-19 21:53] VITALS: PULSE 71
[2019-10-19 22:54] VITALS: BP 109/81; RESP 18; TEMP 98.3
== END 2019-10-19 22:58 | disposition home or self-care (01) ==
LOC: EC 17:43
DX: R10.9 Unspecified abdominal pain (principal); R74.8 Abnormal levels of other serum enzymes; E07.9 Disorder of thyroid, unspecified; Z79.890 Hormone replacement therapy; Z88.5 Allergy status to narcotic agent; Z91.040 Latex allergy status; Z91.013 Allergy to seafood; Z91.048 Other nonmedicinal substance allergy status; Z98.84 Bariatric surgery status; Z90.49 Acquired absence of other specified parts of digestive tract
CPT/HCPCS: 36415; 80048; 83690; 83735; 85025; 96374; 96375 ×2; 96361 ×2; 99284; J1100; J2405; C9113

== ENCOUNTER 2019-10-21 17:37 | Emergency (ER) | payer OTHER ==
[2019-10-21] MEDS ORDERED: SODIUM CHLORIDE 0.9% 1,000 ML IV STA (18:08)
[2019-10-21] MEDS ORDERED: ONDANSETRON 4 MG/2 ML VIAL IVP STA (18:13)
[2019-10-21] MEDS ORDERED: MORPHINE SULFATE 4 MG/ML SYRINGE IVP STA (18:16)
--- NOTE | 2019-10-21 18:19 | ED ---
General Adult HPI - General Source: patient, family, RN notes reviewed Mode of arrival: ambulatory Limitations: no limitations <Joe Slade - Last Filed: 10/21/19 22:18> <Ruma Brown - Last Filed: 10/25/19 16:35> - General Chief complaint: Abdominal Pain Stated complaint: Post op abd pain Time Seen by Provider: 10/21/19 17:49 - History of Present Illness Initial comments: 39-year-old female a significant past medical history of remote cholecystectomy as well as gastric sleeve on 10/16/2019 in [place] presents to the emergency department for a chief complaint of upper abdominal pain. Patient has had upper abdominal pain starting 1 hour ago. She denies any shortness of breath. Patient is very anxious upon arrival and is tearful. Patient having episodes of dry heaving. Patient states she called the on-call service and talked to the physician telecom assistant who referred her to the emergency room.Patient has no other complaints at this time including shortness of breath, chest pain, headache, or visual changes. (Joe Slade) - Related Data Home Medications Medication Instructions Recorded Confirmed Acid Reflux (Unknown Name/Dose) 1 tab PO DAILY 10/21/19 10/23/19 Esophagus Spasm (Unknown Name/Dose) 1 tab PO DAILY 10/21/19 10/23/19 Allergies Allergy/AdvReac Type Severity Reaction Status Date / Time hydrocodone bitartrate Allergy tongue Verified 10/23/19 12:09 [From Vicodin] swelling iodine Allergy Rash/Hives Verified 10/23/19 12:09 latex Allergy Rash/Hives Verified 10/23/19 12:09 shellfish derived [Shellfish] Allergy Swelling Verified 10/23/19 12:09 adhesive AdvReac blisters,red Verified 10/23/19 12:09 skin Review of Systems ROS Other: All systems not noted in ROS Statement are negative. <Joe Slade - Last Filed: 10/21/19 22:18> ROS Other: All systems not noted in ROS Statement are negative. <Ruma Brown - Last Filed: 10/25/19 16:35> ROS Statement: Those systems with pertinent positive or pertinent negative responses have been documented in the HPI. Past Medical History Past Medical History: Osteoarthritis (OA), Sleep Apnea/CPAP/BIPAP, Thyroid Disorder Additional Past Medical History / Comment(s): thyroid nodules, hx. anemia, migraines, Sleep Apnea- no machine., neck and lower back pain. History of Any Multi-Drug Resistant Organisms: None Reported Past Surgical History: Cholecystectomy, Orthopedic Surgery, Tonsillectomy, Tubal Ligation Additional Past Surgical History / Comment(s): left elbow surg., cyst removed from neck, LT THYROID LOBECTOMY WITH FROZEN BX., gastric bypass Past Anesthesia/Blood Transfusion Reactions: Family History of Problems w/ Anesthesia, Postoperative Nausea & Vomiting (PONV) Additional Past Anesthesia/Blood Transfusion Reaction / Comment(s): PATIENT HAS PONV AND MIGRAINE HEADACHE. GRANDMOTHER HAS PONV & MIGRAINES ALSO. Past Psychological History: Anxiety, Depression Smoking Status: Never smoker Past Alcohol Use History: Rare Past Drug Use History: None Reported - Past Family History Mother Family Medical History: Cancer Additional Family Medical History / Comment(s): MS Father Family Medical History: Hyperlipidemia <Joe Slade P - Last Filed: 10/21/19 22:18> General Exam Limitations: no limitations General appearance: alert, in no apparent distress Head exam: Present: atraumatic, normocephalic, normal inspection Eye exam: Present: normal appearance, PERRL, EOMI. Absent: scleral icterus, conjunctival injection, periorbital swelling ENT exam: Present: normal exam, mucous membranes moist Neck exam: Present: normal inspection, full ROM. Absent: tenderness, meningismus, lymphadenopathy Respiratory exam: Present: normal lung sounds bilaterally. Absent: respiratory distress, wheezes, rales, rhonchi, stridor Cardiovascular Exam: Present: regular rate, normal rhythm, normal heart sounds. Absent: systolic murmur, diastolic murmur, rubs, gallop, clicks GI/Abdominal exam: Present: soft, tenderness (epigastric tenderness), normal bowel sounds. Absent: distended, guarding, rebound, rigid Neurological exam: Present: alert Psychiatric exam: Present: normal affect, normal mood <Joe Slade P - Last Filed: 10/21/19 22:18> Course Vital Signs 10/21/19 10/21/19 17:42 21:43 Temperature 98.8 F 98.9 F Pulse Rate 103 H 69 Respiratory 20 16 Rate Blood Pressure 121/85 114/70 O2 Sat by Pulse 98 98 Oximetry EKG Findings - EKG Comments: EKG Findings:: Normal sinus rhythm, ventricular rate 64, TX interval 168, QTC 433 <Joe Slade - Last Filed: 10/21/19 22:18> Medical Decision Making - Lab Data Result diagrams: 10/21/19 18:46 10/21/19 18:46 <Joe Slade - Last Filed: 10/21/19 22:18> - Lab Data Result diagrams: 10/21/19 18:46 10/21/19 18:46 <Ruma Brown - Last Filed: 10/25/19 16:35> - Medical Decision Making Vitals are stable. Patient presents with dry heaves but no vomiting. Epigastric area tender. Patient had gastric bypass surgery out of [place] about 5 days ago. She did speak with the PA of the surgical team today and they recommended she come to the emergency room. I did call Nirmal from surgical team after I saw the patient and he does recommend lab evaluation as well as CT of the chest to rule out PE as well as abdomen and pelvis with bariatric surgery prep. CBC is unremarkable. CMP also unremarkable. Minimal elevation of lipase however this is not 3 times above normal limit. Urinalysis does not show any obvious signs of infection. Patient was given premedication for contrast. I did speak with helicopter technician about patient care and they will do oral bariatric prep as well. I also had them contact the reading radiologist to have them psy attention to the portal venous system per Nirmal DICKERSON. CTA of the chest shows mild subsegmental atelectasis without evidence of pulmonary embolism. CT abdomen and pelvis with oral and IV contrast was obtained which showed a negative computed tomography scan within normal appendix. No adverse change compared old exam. There is a gastric bariatric surgery that is new compared to old exam. Patient was given pain medication and Zofran. She is much improved at this time. I discussed this with Nirmal who recommends patient be discharged home and given 10 mg of Decadron IV before discharge. He will call her tomorrow morning to follow-up. Patient is in agreement with this plan. (Joe Slade) I was available for consultation in the emergency department. The history and physical exam were done by the midlevel provider. I was consulted for this patients care. I reviewed the case with the midlevel provider and based on their presentation of the patient, I agree with the assessment, medical decision making and plan of care as documented. Chart was dictated using [employer] dictation software. Attempts were made to correct any dictation errors however some typographical errors may persist. Patient was seen during a national state of emergency due to the Covid-19 pandemic. (Ruma Brown) - Lab Data Lab Results 10/21/19 10/21/19 10/21/19 Range/Units 18:46 18:46 18:46 WBC 9.6 (3.8-10.6) k/uL RBC 4.40 (3.80-5.40) m/uL Hgb 12.7 (11.4-16.0) gm/dL Hct 39.0 (34.0-46.0) % MCV 88.8 (80.0-100.0) fL MCH 29.0 (25.0-35.0) pg MCHC 32.6 (31.0-37.0) g/dL RDW 13.2 (11.5-15.5) % Plt Count 290 (150-450) k/uL Neutrophils % 66 % Lymphocytes % 26 % Monocytes % 5 % Eosinophils % 1 % Basophils % 0 % Neutrophils # 6.4 (1.3-7.7) k/uL Lymphocytes # 2.5 (1.0-4.8) k/uL Monocytes # 0.5 (0-1.0) k/uL Eosinophils # 0.1 (0-0.7) k/uL Basophils # 0.0 (0-0.2) k/uL PT (9.0-12.0) sec INR (<1.2) APTT (22.0-30.0) sec Sodium 136 L (137-145) mmol/L Potassium 3.8 (3.5-5.1) mmol/L Chloride 102 (98-107) mmol/L Carbon Dioxide 26 (22-30) mmol/L Anion Gap 8 mmol/L BUN 19 H (7-17) mg/dL Creatinine 0.83 (0.52-1.04) mg/dL Est GFR (CKD-EPI)AfAm >90 (>60 ml/min/1.73 sqM) Est GFR (CKD-EPI)NonAf >90 (>60 ml/min/1.73 sqM) Glucose 82 (74-99) mg/dL Calcium 9.2 (8.4-10.2) mg/dL Total Bilirubin 0.4 (0.2-1.3) mg/dL AST 26 (14-36) U/L ALT 49 H (4-34) U/L Alkaline Phosphatase 58 (38-126) U/L Troponin I <0.012 (0.000-0.034) ng/mL Total Protein 6.6 (6.3-8.2) g/dL Albumin 3.9 (3.5-5.0) g/dL Amylase 106 (30-110) U/L Lipase 697 H (23-300) U/L Urine Color Urine Appearance (Clear) Urine pH (5.0-8.0) Ur Specific [place] (1.001-1.035) Urine Protein (Negative) Urine Glucose (UA) (Negative) Urine Ketones (Negative) Urine Blood (Negative) Urine Nitrite (Negative) Urine Bilirubin (Negative) Urine Urobilinogen (<2.0) mg/dL Ur Leukocyte Esterase (Negative) Urine RBC (0-5) /hpf Urine WBC (0-5) /hpf Ur Squamous Epith Cells (0-4) /hpf Hyaline Casts (0-2) /lpf Urine Mucus (None) /hpf 10/21/19 10/21/19 Range/Units 18:46 20:45 WBC (3.8-10.6) k/uL RBC (3.80-5.40) m/uL Hgb (11.4-16.0) gm/dL Hct (34.0-46.0) % MCV (80.0-100.0) fL MCH (25.0-35.0) pg MCHC (31.0-37.0) g/dL RDW (11.5-15.5) % Plt Count (150-450) k/uL Neutrophils % % Lymphocytes % % Monocytes % % Eosinophils % % Basophils % % Neutrophils # (1.3-7.7) k/uL Lymphocytes # (1.0-4.8) k/uL Monocytes # (0-1.0) k/uL Eosinophils # (0-0.7) k/uL Basophils # (0-0.2) k/uL PT 9.9 (9.0-12.0) sec INR 0.9 (<1.2) APTT 22.4 (22.0-30.0) sec Sodium (137-145) mmol/L Potassium (3.5-5.1) mmol/L Chloride (98-107) mmol/L Carbon Dioxide (22-30) mmol/L Anion Gap mmol/L BUN (7-17) mg/dL Creatinine (0.52-1.04) mg/dL Est GFR (CKD-EPI)AfAm (>60 ml/min/1.73 sqM) Est GFR (CKD-EPI)NonAf (>60 ml/min/1.73 sqM) Glucose (74-99) mg/dL Calcium (8.4-10.2) mg/dL Total Bilirubin (0.2-1.3) mg/dL AST (14-36) U/L ALT (4-34) U/L Alkaline Phosphatase (38-126) U/L Troponin I (0.000-0.034) ng/mL Total Protein (6.3-8.2) g/dL Albumin (3.5-5.0) g/dL Amylase (30-110) U/L Lipase (23-300) U/L Urine Color Yellow Urine Appearance Cloudy H (Clear) Urine pH 6.0 (5.0-8.0) Ur Specific [place] 1.028 (1.001-1.035) Urine Protein Trace H (Negative) Urine Glucose (UA) Negative (Negative) Urine Ketones 1+ H (Negative) Urine Blood Negative (Negative) Urine Nitrite Negative (Negative) Urine Bilirubin Negative (Negative) Urine Urobilinogen <2.0 (<2.0) mg/dL Ur Leukocyte Esterase Negative (Negative) Urine RBC 1 (0-5) /hpf Urine WBC 3 (0-5) /hpf Ur Squamous Epith Cells 8 H (0-4) /hpf Hyaline Casts 3 H (0-2) /lpf Urine Mucus Many H (None) /hpf Disposition Is patient prescribed a controlled substance at d/c from ED?: No Time of Disposition: 22:06 <Joe Slade P - Last Filed: 10/21/19 22:18> <Ruma Brown - Last Filed: 10/25/19 16:35> Clinical Impression: Abdominal pain, History of bariatric surgery, Elevated lipase Disposition: HOME SELF-CARE Condition: Good Instructions (If sedation given, give patient instructions): Abdominal Pain (ED) Additional Instructions: Please follow-up with your surgeon tomorrow. Nirmal said you would be getting a call in the morning. If you have any worsening symptoms over the night return to the emergency room. Referrals: Jose Luis Menon MD [REFERRING] - 1-2 days
[2019-10-21 19:53] LABS: Basophils % (A) 0 %; Eosinophils # (A) 0.1 k/uL (0-0.7); Eosinophils % (A) 1 %; HGB 12.7 gm/dL (11.4-16.0); Lymphocytes # (A) 2.5 k/uL (1.0-4.8); Lymphocytes % (A) 26 %; MCHC 32.6 g/dL (31.0-37.0); MCV 88.8 fL (80.0-100.0); Mean Platelet Volume 7.8; Monocytes # (A) 0.5 k/uL (0-1.0); Monocytes % (A) 5 %; Neutrophils # (A) 6.4 k/uL (1.3-7.7); Neutrophils % (A) 66 %; Platelet Count 290 k/uL (150-450); RDW 13.2 % (11.5-15.5); WBC 9.6 k/uL (3.8-10.6)
[2019-10-21 20:03] LABS: ALT 49 U/L (4-34); AST 26 U/L (14-36); African American GFR (CKD) >90 (>60 ml/min/1.73 sqM); Albumin 3.9 g/dL (3.5-5.0); Alkaline Phosphatase 58 U/L (38-126); Amylase 106 U/L (30-110); Anion Gap 8 mmol/L; Blood Urea Nitrogen 19 mg/dL (7-17); Calcium 9.2 mg/dL (8.4-10.2); Carbon Dioxide 26 mmol/L (22-30); Chloride 102 mmol/L (98-107); Glucose 82 mg/dL (74-99); Non-African American GFR(CKD) >90 (>60 ml/min/1.73 sqM); Potassium 3.8 mmol/L (3.5-5.1); Sodium 136 mmol/L (137-145); Total Bilirubin 0.4 mg/dL (0.2-1.3); Total Protein 6.6 g/dL (6.3-8.2)
[2019-10-21 20:04] LABS: INR 0.9 (<1.2); Partial Thromboplastin Time 22.4 sec (22.0-30.0); Prothrombin Time 9.9 sec (9.0-12.0)
[2019-10-21] MEDS ORDERED: IOPAMIDOL CONTRAST (ORAL USE) VIAL PO PRN (20:14)
[2019-10-21] MEDS ORDERED: diphenhydrAMINE 50 MG/ML 1 ML VIAL IVP STA (20:15)
[2019-10-21] MEDS ORDERED: FAMOTIDINE 20 MG/2 ML VIAL IV STA (20:15)
[2019-10-21] MEDS ORDERED: methylPREDNISolone SOD SUCCI 125 MG/2 ML VIAL IV STA (20:15)
[2019-10-21] MEDS ORDERED: HYDROmorphone 0.5 MG/0.5 ML SYRINGE IVP STA (20:49)
[2019-10-21 21:01] LABS: Appearance,Urine Cloudy (Clear); Bilirubin,Urine Negative (Negative); Blood,Urine Negative (Negative); Color,Urine Yellow; Glucose,Urine (UA) Negative (Negative); Hyaline Casts,Urine 3 /lpf (0-2); Ketones,Urine 1+ (Negative); Leukocyte Esterase,Urine Negative (Negative); Mucus,Urine Many /hpf; Nitrite,Urine Negative (Negative); Protein,Urine Trace (Negative); RBC,Urine 1 /hpf (0-5); Specific Gravity,Urine 1.028 (1.001-1.035); Squamous Epithelial Cell,Urine 8 /hpf (0-4); Urobilinogen,Urine <2.0 mg/dL (<2.0); WBC,Urine 3 /hpf (0-5)
--- NOTE | 2019-10-21 21:27 | CT ---
EXAMINATION TYPE: CT abdomen pelvis w con DATE OF EXAM: 10/21/2019 COMPARISON: 08/30/2019 HISTORY: Shortness or breath and epigastric pain post OP gastric sleeve [address] DLP: 2098.8 mGycm Automated exposure control for dose reduction was used. CONTRAST: Performed with IV Contrast, patient injected with 100 mL of Isovue 370. Lung bases are clear of consolidation. There is no pleural effusion. Heart size is normal. There is n o pericardial effusion. There is previous gastric surgery. Liver spleen pancreas appear normal. Bile ducts are not dilated. Gallbladder is absent. There is no adrenal mass. Kidneys show satisfactory contrast opacification. There is no hydronephrosi s. Ureters are not dilated. Bladder distends smoothly. There is small amount of free fluid in the pel vis. Uterus is anteverted. There is no inguinal hernia. There is no evidence of pelvic mass. Appendix is posterior and lateral and appears normal. There is metallic density in the left lower abdomen anteriorly that could be malposition of tubal lig ation clip. There is no mesenteric edema. There is no ascites or free air. There is no bowel obstruction. The lumbar vertebra have normal alignment. Disc spaces are normal. There is no compression fracture. Bony pelvis appears intact. IMPRESSION: Negative CT scan abdomen and pelvis. Normal appendix. No adverse change compared to old exam. There i s gastric bariatric surgery compared to old exam.
--- NOTE | 2019-10-21 21:31 | CT ---
EXAMINATION TYPE: CT chest angio for PE DATE OF EXAM: 10/21/2019 COMPARISON: None HISTORY: Shortness or breath and epigastric pain post OP gastric sleeve [address] DLP: 2098.8 mGycm Automated exposure control for dose reduction was used. CONTRAST: Performed with IV Contrast, patient injected with 100 mL of Isovue 370. There are 3-D post processed images. The lungs are clear of consolidation. There is mild subsegmental atelectasis in the left posterior malissa ng field. There is no pleural effusion. Heart appears normal. There is no pericardial effusion. There is no mediastinal adenopathy. There are no hilar masses. There is gastric bariatric surgery noted. I see no filling defects in the pulmonary arteries. There is no evidence of aortic dissection. There is no aortic aneurysm. The thoracic spine is intact. The ribs appear intact. IMPRESSION: Mild subsegmental atelectasis. No evidence of pulmonary embolism.
[2019-10-21 21:46] VITALS: BP 114/70; PULSE 69; RESP 16; TEMP 98.9
[2019-10-21] MEDS ORDERED: DEXAMETHASONE SOD PHOSPHATE 10 MG/ML 1 ML VIAL IV STA (21:56)
== END 2019-10-21 22:32 | disposition home or self-care (01) ==
LOC: EC 17:37
DX: R10.13 Epigastric pain (principal); R74.8 Abnormal levels of other serum enzymes; K21.9 Gastro-esophageal reflux disease without esophagitis; Z79.899 Other long term (current) drug therapy; Z90.49 Acquired absence of other specified parts of digestive tract; Z88.8 Allergy status to other drugs, medicaments and biological substances; Z91.013 Allergy to seafood; Z91.041 Radiographic dye allergy status; Z91.048 Other nonmedicinal substance allergy status; Z90.89 Acquired absence of other organs; Z98.51 Tubal ligation status; Z98.84 Bariatric surgery status
CPT/HCPCS: 36415; 93005; 80053; 82150; 83690; 84484; 85025; 85610; 85730; 81001; 71275; 74177; 99284; 96374; 96375 ×6; 96361 ×4; J2270; J1200; J1100; J2930; J2405; J1170; Q9967

== ENCOUNTER → 2019-10-23 | Outpatient (CLI) | payer OTHER ==
[~2019-10-23] MED LIST changes: +DEXAMETHASONE SOD PHOSPHATE 10 MG/ML 1 ML VIAL IV NR; -LACTATED RINGERS 1,000 ML IV SCH; -LIDOCAINE 1% 20 ML VIAL (10MG/ML) FOR IV START INTRADERMA PRN; +ONDANSETRON 4 MG/2 ML VIAL IVP NR; +SODIUM CHLORIDE 0.9% 500 ML 500 ML in EMPTY BAG 1 BAG IV PRN
[2019-10-23 12:14] VITALS: BP 114/78; PULSE 73; RESP 16; TEMP 98.3
[2019-10-23] MEDS: SODIUM CHLORIDE 0.9% 1,000 ML IV SCH ×2 (12:23→13:32)
== END | disposition home or self-care (01) ==
LOC: PROCWHC3 11:59
DX: R11.0 Nausea (principal); R13.0 Aphagia
CPT/HCPCS: 96360; 96361; 96375; J1100; J2405

== ENCOUNTER → 2020-01-31 | Outpatient (CLI) | payer OTHER | END | disposition home or self-care (01) | LOC: RADUSWWP 07:56 | PROVIDERS: ATTEND Surgery | DX: Z53.9 Procedure and treatment not carried out, unspecified reason (principal) ==

== ENCOUNTER 2020-02-04 09:10 | Outpatient (CLI) | payer OTHER | END 2020-02-04 09:56 | disposition home or self-care (01) | LOC: LABWHC1 09:10 | DX: Z53.9 Procedure and treatment not carried out, unspecified reason (principal) ==

== ENCOUNTER → 2020-02-08 | Outpatient (CLI) | payer OTHER ==
--- NOTE | 2020-02-08 10:13 | FL ---
EXAMINATION TYPE: FL UGI DATE OF EXAM: 02/08/2020 COMPARISON: None HISTORY: Vomiting with meals TECHNIQUE: A single contrast UGI study is performed with barium. FINDINGS: Contrast passes from the distal esophagus through the gastric sleeve with no significant he sitancy. Gastroesophageal junction opens to normal caliber. Stomach appears normal. Contrast passes t hrough the stomach into the duodenum without significant hesitancy. Multiple episodes of reflux were evident into the esophagus to the level of the aortic arch. Patient stated the symptoms of reflux were evident. IMPRESSIONS: 1. Gastroesophageal reflux. 2. No significant hesitancy passing through the gastric sleeve.
== END | disposition home or self-care (01) ==
LOC: RADUSWWP 09:09
PROVIDERS: ATTEND Surgery
DX: K21.9 Gastro-esophageal reflux disease without esophagitis (principal); E66.01 Morbid (severe) obesity due to excess calories; Z68.37 Body mass index [BMI] 37.0-37.9, adult; Z71.3 Dietary counseling and surveillance; Z98.84 Bariatric surgery status
CPT/HCPCS: 74240

== ENCOUNTER → 2020-04-02 | Outpatient (CLI) | payer OTHER ==
[2020-04-02 16:17] LABS: Basophils % (A) 0 %; Eosinophils # (A) 0.1 k/uL (0-0.7); Eosinophils % (A) 1 %; HGB 12.9 gm/dL (11.4-16.0); Lymphocytes # (A) 1.5 k/uL (1.0-4.8); Lymphocytes % (A) 31 %; MCH 30.6 pg (25.0-35.0); MCHC 33.8 g/dL (31.0-37.0); MCV 90.4 fL (80.0-100.0); Mean Platelet Volume 7.4; Monocytes # (A) 0.2 k/uL (0-1.0); Monocytes % (A) 5 %; Neutrophils % (A) 61 %; Platelet Count 272 k/uL (150-450); RBC 4.21 m/uL (3.80-5.40); RDW 12.4 % (11.5-15.5); WBC 4.9 k/uL (3.8-10.6)
[2020-04-03 04:19] LABS: African American GFR (CKD) 93.4 (60.0-200.0); Albumin 4.3 g/dL (3.80-4.90); Albumin/Globulin Ratio 2.39 (1.60-3.17); Anion Gap 9.1 mmol/L (4.00-12.00); BUN/Creat Ratio 11.11 Ratio (12.00-20.00); Calcium 9.3 mg/dL (8.7-10.3); Carbon Dioxide 27.9 mmol/L (21.6-31.8); Globulin 1.8 g/dL (1.6-3.3); Non-African American GFR(CKD) 80.5 (60.0-200.0); Potassium 4.1 mmol/L (3.5-5.5); Total Bilirubin 0.4 mg/dL (0.2-1.2); Total Protein 6.1 g/dL (6.2-8.2)
== END | disposition home or self-care (01) ==
LOC: LABWHC1 14:52
PROVIDERS: ATTEND Nurse Practitioner
DX: R10.9 Unspecified abdominal pain (principal)
CPT/HCPCS: 36415; 80053; 82150; 83690; 85025

== ENCOUNTER → 2020-04-02 | Outpatient (CLI) | payer OTHER ==
--- NOTE | 2020-04-02 15:48 | XR ---
EXAMINATION TYPE: XR Hip Bilateral and AP pelvis DATE OF EXAM: 04/02/2020 COMPARISON: NONE HISTORY: Pain TECHNIQUE: A single AP view of the pelvis is obtained. Two views of the bilateral hip are obtained. FINDINGS: There is no acute fracture/dislocation evident in the pelvis. The hip and sacroiliac join ts appear symmetric and unremarkable. The overlying soft tissue appears unremarkable. Two views of bilateral hip show no acute fracture or dislocation. No focal lytic or sclerotic lesion seen in the proximal bilateral femur. The overlying soft tissue is unremarkable. Postsurgical verma ge in the pelvis. Tiny calcifications in the right hemipelvis too small to characterize. IMPRESSION: There is no acute fracture or dislocation in the pelvis or bilateral hip.
== END | disposition home or self-care (01) ==
LOC: RADXRMAIN 15:13
PROVIDERS: ATTEND Family Medicine
DX: M25.552 Pain in left hip (principal)
CPT/HCPCS: 73521

== ENCOUNTER → 2020-04-04 | Outpatient (CLI) | payer OTHER ==
--- NOTE | 2020-04-04 22:34 | CT ---
EXAMINATION TYPE: CT abdomen pelvis wo con DATE OF EXAM: 04/04/2020 COMPARISON: 10/21/2019 INDICATION: Abdomen pain DLP: 874 mGycm, Automated exposure control for dose reduction was used. CONTRAST: Intravenous contrast diffuse due to allergies. Study performed with very limited oral contrast. TECHNIQUE: Axial images were obtained from above the diaphragm to the pubic rami in the axial plane a t 5 mm thick sections. Reconstructed images are reviewed on the computer in the coronal plane. FINDINGS: Limited CT sections are obtained the lung bases. The lung bases are clear. CT ABDOMEN: Liver: Normal Spleen: Normal Pancreas: Normal Adrenal glands: The adrenal glands are normal. Gallbladder: Surgically absent Kidneys: No masses are evident. No hydronephrosis is present. No cysts are present. No renal stone s are evident Aorta: Normal Inferior vena cava: Normal. CT PELVIS: Loops of bowel within the abdomen and pelvis are normal. There are loops of bowel which are incom pletely distended or lack oral contrast limiting their evaluation. Appendix: Not visualized. No dilated tubular structures or inflammatory changes are evident Urinary bladder: Normal. Genitourinary structures: Uterus is normal. Adnexal regions are clear Osseous structures: No suspicious lytic or sclerotic lesions. IMPRESSIONS: 1. No suspicious abnormality to account for abdominal pain
== END | disposition home or self-care (01) ==
LOC: RADCTMAIN 16:23
PROVIDERS: ATTEND Nurse Practitioner
DX: R10.9 Unspecified abdominal pain (principal)
CPT/HCPCS: 74176

== ENCOUNTER → 2020-04-24 | Outpatient (CLI) | payer OTHER ==
--- NOTE | 2020-04-24 09:47 | US ---
EXAMINATION TYPE: US pelvic complete DATE OF EXAM: 04/24/2020 COMPARISON: NONE CLINICAL HISTORY: R10.31 Right Lower Quad Pain. pelvic pain but patient says she always has pain, h/o gastric bypass and unable to fill bladder, TECHNIQUE: TA/TV. Transabdominal sonographic images of the pelvis were acquired. Transvaginal sono graphic images were medically necessary to better assess the following anatomy: all pelvic structures Date of LMP: 04/23/2020 EXAM MEASUREMENTS: Uterus: 10.0 x 6.8 x 5.1 cm Endometrial Stripe: 0.3 cm Right Ovary: not seen Left Ovary: 2.6 x 1.5 x 1.8 cm 1. Uterus: Anteverted 2.0cm mixed lesion within anterior myometrium, complex cyst versus fibroid 2. Endometrium: wnl 3. Right Ovary: not seen due to bowel gas 4. Left Ovary: wnl 5. Bilateral Adnexa: wnl 6. Posterior cul-de-sac: wnl IMPRESSION: 1. Probable Uterine fibroid. Follow-up is recommended
== END | disposition home or self-care (01) ==
LOC: RADUSWWP 07:28
PROVIDERS: ATTEND Family Medicine
DX: R10.31 Right lower quadrant pain (principal)
CPT/HCPCS: 76830; 76856

== ENCOUNTER → 2020-05-16 | Outpatient (CLI) | payer OTHER | END | disposition home or self-care (01) | LOC: LABWHC1 15:46 | PROVIDERS: ATTEND Nurse Practitioner | DX: Z20.822 Contact with and (suspected) exposure to COVID-19 (principal); B34.9 Viral infection, unspecified | CPT/HCPCS: 87502; U0003; C9803; U0005 ==

== ENCOUNTER → 2020-07-17 | Outpatient (CLI) | payer OTHER ==
--- NOTE | 2020-07-18 05:36 | MR ---
EXAMINATION TYPE: MR hip RT wo con DATE OF EXAM: 07/17/2020 COMPARISON: None HISTORY: PAIN IN RT HIP Multiplanar multiecho imaging of the pelvis and right hip was performed with no contrast. FINDINGS: There is small amount of free fluid in the pelvis. Bladder distends smoothly. The sacroiliac joints a ppear normal. Acetabula appear intact. The proximal femurs appear intact. There is no evidence of hip dysplasia. There is no sign of avascular necrosis. Joint fluid appears normal. There is no evidence of a soft tissue mass. Muscle structures appear intact. IMPRESSION: No fracture. Normal hip joint spaces. No evidence of a mass. Mild free fluid in the pelvis.
== END | disposition home or self-care (01) ==
LOC: RADMRIMAIN 08:20
PROVIDERS: ATTEND Nurse Practitioner
DX: M25.551 Pain in right hip (principal)

== ENCOUNTER → 2020-07-28 | Outpatient (CLI) | payer OTHER | END | disposition home or self-care (01) | LOC: LABWHC1 16:55 | PROVIDERS: ATTEND Family Medicine | DX: U07.1 COVID-19 (principal) | CPT/HCPCS: U0003; C9803; U0005 ==

== ENCOUNTER 2020-10-27 08:36 | Emergency (ER) | payer OTHER ==
[2020-10-27 08:47] VITALS: BP 113/70; PULSE 65; RESP 20; TEMP 98
[2020-10-27] MEDS ORDERED: SODIUM CHLORIDE 0.9% 1,000 ML IV STA (09:23)
[2020-10-27 09:51] LABS: Appearance,Urine Cloudy (Clear); Bilirubin,Urine Negative (Negative); Blood,Urine Small (Negative); Color,Urine Yellow; Glucose,Urine (UA) Negative (Negative); Ketones,Urine Negative (Negative); Leukocyte Esterase,Urine Negative (Negative); Mucus,Urine Moderate /hpf; Nitrite,Urine Negative (Negative); PH, Urine 6.5 (5.0-8.0); Protein,Urine Trace (Negative); RBC,Urine 2 /hpf (0-5); Specific Gravity,Urine 1.023 (1.001-1.035); Squamous Epithelial Cell,Urine 20 /hpf (0-4); Urobilinogen,Urine <2.0 mg/dL (<2.0); WBC,Urine 1 /hpf (0-5)
[2020-10-27 09:57] LABS: Basophils % (A) 0 %; Eosinophils # (A) 0.1 k/uL (0-0.7); Eosinophils % (A) 2 %; HCT 37.1 % (34.0-46.0); HGB 12.8 gm/dL (11.4-16.0); Lymphocytes # (A) 1.4 k/uL (1.0-4.8); Lymphocytes % (A) 33 %; MCH 30.9 pg (25.0-35.0); MCHC 34.5 g/dL (31.0-37.0); MCV 89.6 fL (80.0-100.0); Mean Platelet Volume 7.7; Monocytes # (A) 0.2 k/uL (0-1.0); Monocytes % (A) 5 %; Neutrophils # (A) 2.4 k/uL (1.3-7.7); Neutrophils % (A) 58 %; Platelet Count 282 k/uL (150-450); RBC 4.14 m/uL (3.80-5.40); RDW 12.5 % (11.5-15.5); WBC 4.1 k/uL (3.8-10.6)
[2020-10-27 10:04] LABS: ALT 33 U/L (4-34); AST 37 U/L (14-36); African American GFR (CKD) >90 (>60 ml/min/1.73 sqM); Alkaline Phosphatase 66 U/L (38-126); Anion Gap 4 mmol/L; Blood Urea Nitrogen 12 mg/dL (7-17); Calcium 9.6 mg/dL (8.4-10.2); Carbon Dioxide 29 mmol/L (22-30); Chloride 106 mmol/L (98-107); Glucose 92 mg/dL (74-99); Non-African American GFR(CKD) >90 (>60 ml/min/1.73 sqM); Potassium 4.2 mmol/L (3.5-5.1); Sodium 139 mmol/L (137-145); Total Bilirubin 0.3 mg/dL (0.2-1.3); Total Protein 6.5 g/dL (6.3-8.2)
[2020-10-27] MEDS ORDERED: METOCLOPRAMIDE 5 MG/ML 2 ML VIAL IVP STA (10:08)
[2020-10-27] MEDS ORDERED: diphenhydrAMINE 50 MG/ML 1 ML VIAL IVP STA (10:08)
--- NOTE | 2020-10-27 10:09 | ED ---
General Adult HPI - General Chief complaint: Dizziness Stated complaint: Dizziness, heart racing Time Seen by Provider: 10/27/20 08:51 Source: patient Mode of arrival: ambulatory Limitations: no limitations - History of Present Illness Initial comments: Patient is a 40-year-old female presenting to the emergency Department with complaints of feeling lightheaded, some mild nausea for the past 4 days. Just complains of some intermittent blurry vision this is been going on for couple months now. She states she has not had her eyes checked in a few years and feels like she may need a different prescription. She denies any pain in her eye, no headache. She states that the day before symptoms started she felt like she was having a panic attack. She does have history of anxiety, was recently weaned off of her medication as she she did not feel like it was working. At this time she has no chest pain, no shortness of breath, no abdominal pain. She does have some mild nausea, no vomiting. She does not believe she is , secondary to his tubal ligation. She denies any recent fevers or chills. She denies that the room is spinning. She has no further complaints at this time. Upon arrival to the ER, her vitals are stable. - Related Data Home Medications Medication Instructions Recorded Confirmed No Known Home Medications 10/27/20 10/27/20 Allergies Allergy/AdvReac Type Severity Reaction Status Date / Time hydrocodone bitartrate Allergy Anaphylaxis Verified 10/27/20 10:41 [From Vicodin] iodine Allergy Rash/Hives Verified 10/27/20 10:41 latex Allergy Rash/Hives Verified 10/27/20 10:41 shellfish derived [Shellfish] Allergy Swelling Verified 10/27/20 10:41 adhesive AdvReac blisters,red Verified 10/27/20 10:41 skin hydrocodone [From [place]] AdvReac Anaphylaxis Verified 10/27/20 10:41 Review of Systems ROS Statement: Those systems with pertinent positive or pertinent negative responses have been documented in the HPI. ROS Other: All systems not noted in ROS Statement are negative. Past Medical History Past Medical History: Osteoarthritis (OA), Sleep Apnea/CPAP/BIPAP, Thyroid Disorder Additional Past Medical History / Comment(s): thyroid nodules, hx. anemia, migraines, Sleep Apnea- no machine., neck and lower back pain. History of Any Multi-Drug Resistant Organisms: None Reported Past Surgical History: Cholecystectomy, Orthopedic Surgery, Tonsillectomy, Tubal Ligation Additional Past Surgical History / Comment(s): left elbow surg., cyst removed from neck, LT THYROID LOBECTOMY WITH FROZEN BX., gastric bypass Past Anesthesia/Blood Transfusion Reactions: Family History of Problems w/ Anesthesia, Postoperative Nausea & Vomiting (PONV) Additional Past Anesthesia/Blood Transfusion Reaction / Comment(s): PATIENT HAS PONV AND MIGRAINE HEADACHE. GRANDMOTHER HAS PONV & MIGRAINES ALSO. Past Psychological History: Anxiety, Depression Smoking Status: Vaper Past Alcohol Use History: Rare Past Drug Use History: None Reported - Past Family History Mother Family Medical History: Cancer Additional Family Medical History / Comment(s): MS Father Family Medical History: Hyperlipidemia General Exam - General Exam Comments Initial Comments: GENERAL: Patient is well-developed and well-nourished. Patient is nontoxic and in no acute distress. HEAD: Atraumatic, normocephalic. EYES: Pupils equal round and reactive to light, extraocular movements intact, sclera anicteric, conjunctiva are normal. Eyelids were unremarkable. ENT: Nares patent, oropharynx clear without exudates. Moist mucous membranes. NECK: Normal range of motion, supple without lymphadenopathy or JVD. LUNGS: Unlabored respirations. Breath sounds clear to auscultation bilaterally and equal. No wheezes rales or rhonchi. HEART: Regular rate and rhythm without murmurs, rubs or gallops. ABDOMEN: Soft, nontender, normoactive bowel sounds. No guarding, no rebound. No masses appreciated. : Deferred MUSCULOSKELETAL: Normal extremities with adequate strength and normal range of motion, no pitting or edema. No clubbing or cyanosis. NEUROLOGICAL: Patient is alert and oriented x 3. Motor and sensory are also intact. Cranial nerves II through XII grossly intact. Symmetrical smile. Normal speech, normal gait. PSYCH: Normal mood, normal affect. SKIN: Warm, Dry, normal turgor, no rashes or lesions noted. Limitations: no limitations Course Vital Signs 10/27/20 08:44 Temperature 98 F Pulse Rate 65 Respiratory 20 Rate Blood Pressure 113/70 O2 Sat by Pulse 99 Oximetry EKG Findings - EKG Comments: EKG Findings:: Sinus bradycardia otherwise normal ECG, no signs of acute process. Ventricular rate 55, UT interval 188, QTC 452. Similar to previous on 10/21/2019. Medical Decision Making - Medical Decision Making Patient is a 40-year-old female here with complaints of lightheadedness, mild nausea for the past 4 days. She also stated some blurry vision but this is been going on for couple months, she states she thinks she needs a new prescription. She denies having a headache, no chest pain or shortness of breath, no abdominal symptoms on her exam. Her vital signs are stable. EKG is normal. Lab work is normal, troponin is normal, urine shows no evidence of infection, hCG is not detected. Case is no acute process. Patient was given fluids, Benadryl and Reglan. She has been resting comfortably. She states she still feels a little dizzy. I did recommend some additional medications however patient is refusing all other medications. She states she wants to go home and rest. Patient's is here and will drive her home. Reexamination reveals no acute findings, her vital signs remained stable during her stay. She is stable for discharge. I do recommend falling up with her primary care physician as well as having her eyes checked by her eye doctor. She is in agreement with this plan of care. She stable for discharge. Return parameters were discussed with her and she verbalized understanding. Case discussed with Dr. Roque. - Lab Data Result diagrams: 10/27/20 09:33 10/27/20 09:33 Lab Results 10/27/20 10/27/20 10/27/20 Range/Units 09:33 09:33 09:33 WBC 4.1 (3.8-10.6) k/uL RBC 4.14 (3.80-5.40) m/uL Hgb 12.8 (11.4-16.0) gm/dL Hct 37.1 (34.0-46.0) % MCV 89.6 (80.0-100.0) fL MCH 30.9 (25.0-35.0) pg MCHC 34.5 (31.0-37.0) g/dL RDW 12.5 (11.5-15.5) % Plt Count 282 (150-450) k/uL MPV 7.7 Neutrophils % 58 % Lymphocytes % 33 % Monocytes % 5 % Eosinophils % 2 % Basophils % 0 % Neutrophils # 2.4 (1.3-7.7) k/uL Lymphocytes # 1.4 (1.0-4.8) k/uL Monocytes # 0.2 (0-1.0) k/uL Eosinophils # 0.1 (0-0.7) k/uL Basophils # 0.0 (0-0.2) k/uL Sodium 139 (137-145) mmol/L Potassium 4.2 (3.5-5.1) mmol/L Chloride 106 (98-107) mmol/L Carbon Dioxide 29 (22-30) mmol/L Anion Gap 4 mmol/L BUN 12 (7-17) mg/dL Creatinine 0.62 (0.52-1.04) mg/dL Est GFR (CKD-EPI)AfAm >90 (>60 ml/min/1.73 sqM) Est GFR (CKD-EPI)NonAf >90 (>60 ml/min/1.73 sqM) Glucose 92 (74-99) mg/dL Calcium 9.6 (8.4-10.2) mg/dL Total Bilirubin 0.3 (0.2-1.3) mg/dL AST 37 H (14-36) U/L ALT 33 (4-34) U/L Alkaline Phosphatase 66 (38-126) U/L Troponin I (0.000-0.034) ng/mL Total Protein 6.5 (6.3-8.2) g/dL Albumin 4.0 (3.5-5.0) g/dL Urine Color Yellow Urine Appearance Cloudy H (Clear) Urine pH 6.5 (5.0-8.0) Ur Specific [place] 1.023 (1.001-1.035) Urine Protein Trace H (Negative) Urine Glucose (UA) Negative (Negative) Urine Ketones Negative (Negative) Urine Blood Small H (Negative) Urine Nitrite Negative (Negative) Urine Bilirubin Negative (Negative) Urine Urobilinogen <2.0 (<2.0) mg/dL Ur Leukocyte Esterase Negative (Negative) Urine RBC 2 (0-5) /hpf Urine WBC 1 (0-5) /hpf Ur Squamous Epith Cells 20 H (0-4) /hpf Urine Mucus Moderate H (None) /hpf Urine HCG, Qual (Not Detectd) 10/27/20 10/27/20 Range/Units 09:33 09:33 WBC (3.8-10.6) k/uL RBC (3.80-5.40) m/uL Hgb (11.4-16.0) gm/dL Hct (34.0-46.0) % MCV (80.0-100.0) fL MCH (25.0-35.0) pg MCHC (31.0-37.0) g/dL RDW (11.5-15.5) % Plt Count (150-450) k/uL MPV Neutrophils % % Lymphocytes % % Monocytes % % Eosinophils % % Basophils % % Neutrophils # (1.3-7.7) k/uL Lymphocytes # (1.0-4.8) k/uL Monocytes # (0-1.0) k/uL Eosinophils # (0-0.7) k/uL Basophils # (0-0.2) k/uL Sodium (137-145) mmol/L Potassium (3.5-5.1) mmol/L Chloride (98-107) mmol/L Carbon Dioxide (22-30) mmol/L Anion Gap mmol/L BUN (7-17) mg/dL Creatinine (0.52-1.04) mg/dL Est GFR (CKD-EPI)AfAm (>60 ml/min/1.73 sqM) Est GFR (CKD-EPI)NonAf (>60 ml/min/1.73 sqM) Glucose (74-99) mg/dL Calcium (8.4-10.2) mg/dL Total Bilirubin (0.2-1.3) mg/dL AST (14-36) U/L ALT (4-34) U/L Alkaline Phosphatase (38-126) U/L Troponin I <0.012 (0.000-0.034) ng/mL Total Protein (6.3-8.2) g/dL Albumin (3.5-5.0) g/dL Urine Color Urine Appearance (Clear) Urine pH (5.0-8.0) Ur Specific [place] (1.001-1.035) Urine Protein (Negative) Urine Glucose (UA) (Negative) Urine Ketones (Negative) Urine Blood (Negative) Urine Nitrite (Negative) Urine Bilirubin (Negative) Urine Urobilinogen (<2.0) mg/dL Ur Leukocyte Esterase (Negative) Urine RBC (0-5) /hpf Urine WBC (0-5) /hpf Ur Squamous Epith Cells (0-4) /hpf Urine Mucus (None) /hpf Urine HCG, Qual Not Detected (Not Detectd) Disposition Clinical Impression: Dehydration, Light headedness, Nausea Disposition: HOME SELF-CARE Condition: Stable Instructions (If sedation given, give patient instructions): Dizziness (ED) Additional Instructions: Please return to the Emergency Department if symptoms worsen or any other concerns. Recommend continuing with fluid intake, trial of meclizine, [id number] for further dizziness. Please follow-up with your primary care physician and your eye doctor. Is patient prescribed a controlled substance at d/c from ED?: No Referrals: Prince Engel MD [Primary Care Provider] - 1-2 days Time of Disposition: 11:20
--- NOTE | 2020-10-27 10:31 | XR ---
EXAMINATION TYPE: XR chest 2V DATE OF EXAM: 10/27/2020 COMPARISON: Chest x-ray dated 04/03/2015 HISTORY: Dizziness and palpitations TECHNIQUE: Frontal and lateral views of the chest are obtained. FINDINGS: There is no focal air space opacity, pleural effusion, or pneumothorax seen. The cardiac silhouette size is within normal limits. The osseous structures are intact. Stable elevation of the right hemidiaphragm IMPRESSION: No acute cardiopulmonary process.
== END 2020-10-27 11:28 | disposition home or self-care (01) ==
LOC: EC 08:36
DX: E86.0 Dehydration (principal); R11.0 Nausea; R00.0 Tachycardia, unspecified; F17.290 Nicotine dependence, other tobacco product, uncomplicated; Z91.040 Latex allergy status; Z88.8 Allergy status to other drugs, medicaments and biological substances; Z91.013 Allergy to seafood; Z88.5 Allergy status to narcotic agent; Z91.048 Other nonmedicinal substance allergy status
CPT/HCPCS: 36415; 93005; 80053; 84484; 85025; 81001; 81025; 71046; 99285; 96374; 96375; 96361; J1200; J2765

== ENCOUNTER 2021-01-07 09:43 | Emergency (ER) | payer OTHER ==
[2021-01-07] MEDS ORDERED: DIPH,PERTUS(ACELL)TETVAC-LF 0.5 ML VIAL IM ONE (10:04)
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
--- NOTE | 2021-01-07 11:12 | XR ---
EXAMINATION TYPE: XR mandible complete DATE OF EXAM: 01/07/2021 COMPARISON: NONE HISTORY: Pain TECHNIQUE: 5 images provided. FINDINGS: Osseous structures intact. No acute displaced fracture. IMPRESSION: No acute fracture. If symptoms persist consider CT scan.
[2021-01-07] MEDS ORDERED: BACITRACIN OINT 1 EACH PACKET TOPICAL ONE (11:16)
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
[2021-01-07 11:36] VITALS: BP 110/74; PULSE 72; RESP 14; TEMP 98.4
== END 2021-01-07 11:37 | disposition home or self-care (01) ==
LOC: EC 09:43
DX: S61.032A Puncture wound without foreign body of left thumb without damage to nail, initial encounter (principal); S00.83XA Contusion of other part of head, initial encounter; Z88.8 Allergy status to other drugs, medicaments and biological substances; Z91.040 Latex allergy status; Z91.013 Allergy to seafood; Z91.09 Other allergy status, other than to drugs and biological substances; Z88.5 Allergy status to narcotic agent; Z23 Encounter for immunization; Y04.1XXA Assault by human bite, initial encounter; Y92.009 Unspecified place in unspecified non-institutional (private) residence as the place of occurrence of the external cause
CPT/HCPCS: 70110; 90471; 90715; 99283

== ENCOUNTER → 2021-04-28 | Outpatient (CLI) | payer OTHER ==
--- NOTE | 2021-04-28 14:24 | XR ---
EXAMINATION TYPE: XR abdomen complete w decub DATE OF EXAM: 04/28/2021 COMPARISON: NONE HISTORY: R 10.13 TECHNIQUE: Supine, upright, and left side down lateral decubitus views of the abdomen are obtained o n 4 images. FINDINGS: Fallopian tubal ligation clips are present within the pelvis. There are probable phlebolit hs also present in the pelvis. Surgical clips present in the right upper quadrant. Retained fecal deepika ris present within the colon. Degenerative disc changes are present visualized spine. Surgical clips present in the left upper quadrant, correlate for appropriate surgical history. There is no evidence for pneumoperitoneum. The bowel gas pattern is unremarkable as there is air throughout nondilated small and large bowel. There are air-fluid levels without bowel distention.. No mass effects are seen. No unusual calcifications. IMPRESSION: Nonspecific findings, follow-up as indicated. Postop changes.
== END | disposition home or self-care (01) ==
LOC: RADXRMAIN 09:43
PROVIDERS: ATTEND Nurse Practitioner Family
DX: R10.13 Epigastric pain (principal)
CPT/HCPCS: 74021

== ENCOUNTER → 2021-06-11 | Outpatient (CLI) | payer OTHER ==
--- NOTE | 2021-06-11 11:44 | XR ---
EXAMINATION TYPE: XR Hip Bilateral Complete DATE OF EXAM: 06/11/2021 COMPARISON: NONE HISTORY: Pain TECHNIQUE: 2 views submitted FINDINGS: There is no evidence of erosive change or acute fracture. Mild hypertrophic change of the acetabulum greater on the left. Postsurgical changes in the pelvis. Vascular calcium lesions in the pelvis. Hype rtrophic changes of the pubic symphysis. IMPRESSION: 1. Mild hypertrophic change of the acetabulum greater on the left can be associated with femoral acet abular impingement. Correlate with MRI as clinically warranted.
== END | disposition home or self-care (01) ==
LOC: RADXRMAIN 10:57
PROVIDERS: ATTEND Nurse Practitioner Family
DX: M25.551 Pain in right hip (principal); M25.552 Pain in left hip
CPT/HCPCS: 73521

== ENCOUNTER → 2021-08-12 | Outpatient (CLI) | payer OTHER ==
[2021-08-12 18:59] LABS: Potassium 4.1 mmol/L (3.5-5.5)
[2021-08-12 19:01] LABS: Basophils # (A) 0.01 X 10*3/uL (0.00-0.10); Basophils % (A) 0.2 %; Eosinophils # (A) 0.06 X 10*3/uL (0.04-0.35); Eosinophils % (A) 1.4 %; HCT 36.2 % (37.2-46.3); HGB 11.4 g/dL (12.0-15.0); Immature Grans, Automated 0.2 %; Lymphocytes # (A) 1.45 X 10*3/uL (0.90-5.00); Lymphocytes % (A) 34.1 %; MCH 29.6 pg (27.0-32.0); MCHC 31.5 g/dL (32.0-37.0); Mean Platelet Volume 10.6 fL (9.5-12.2); Monocytes # (A) 0.29 X 10*3/uL (0.20-1.00); Monocytes % (A) 6.8 %; NRBC Per 100 WBC 0 /100 WBCS (0.0-0.0); Neutrophils # (A) 2.43 X 10*3/uL (1.80-7.70); Neutrophils % (A) 57.3 %; Platelet Count 262 X 10*3/uL (140-440); RBC 3.85 X 10*6/uL (4.10-5.20); RDW 12.9 % (11.5-14.5); WBC 4.25 X 10*3/uL (4.50-10.00)
== END | disposition home or self-care (01) ==
LOC: LABPAT 11:03
PROVIDERS: ATTEND Orthopaedic Surgery Hand Surgery
DX: Z01.812 Encounter for preprocedural laboratory examination (principal); G56.01 Carpal tunnel syndrome, right upper limb
CPT/HCPCS: 80051; 85025

== ENCOUNTER 2021-08-26 08:24 | Day surgery (SDC) | payer OTHER ==
[2021-08-24 12:23] VITALS: BMI 32.1
--- NOTE | 2021-08-24 13:19 | P.HPOR ---
History of Present Illness H&P Date: 08/24/21 Chief Complaint: Right carpal tunnel syndrome Subjective: This is a 41 year old female that presents for follow up evaluation regarding a 1 year history of bilateral upper extremity numbness and pain that she has noticed has been progressing over the past 1 month. Patient reports that her right side is worse than her left. She states she has symptoms of hand numbness at night that wake her up from sleep. She states on the right side it is mainly the thumb, index middle and ring ringer. She has tried night time splinting but has noted little relief. Her left side is less severe she says and her main issue is her right side today. She recently had an EMG done 1 month prior and is here to discuss results. Physical Examination: RUE: AIN/PIN/Radial/Ulnar/Median motor intact. Radial/Ulnar/Median SILT. 2+/4 Radial/Ulnar pulses palpated.4/5 APB, 4/5 FDI. Negative Tinel's at wrist and elbow, positive Durkans. EMG/NCV: EMG/NCV of B/L upper extremities demonstrates right mild carpal tunnel and mild left cubital tunnel syndrome. Impression: 1.) Right carpal tunnel syndrome 2.) Left cubital tunnel syndrome Plan: Diagnosis and treatment options were discussed with the patient. She has failed conservative treatment of her right carpal tunnel syndrome and has persistent numbness interfering with her daily. Risks and benefit of surgery including bleeding, infection, damage to surrounding tissue, need for further surgery, possible need to convert to open procedure, residual numbness were discussed and the patient wished to go forward with surgery. Surgical planning and pre- operative labs are ordered for a right endoscopic vs open carpal tunnel release. -Ryan Torres DO Orthopedic Hand/Upper Extremity Surgeon Past Medical History Past Medical History: Osteoarthritis (OA), Sleep Apnea/CPAP/BIPAP, Thyroid Disorder Additional Past Medical History / Comment(s): thyroid nodules, hx. anemia, migraines, Sleep Apnea- no machine., neck and lower back pain. History of Any Multi-Drug Resistant Organisms: None Reported Past Surgical History: Bariatric Surgery, Cholecystectomy, Orthopedic Surgery, Tonsillectomy, Tubal Ligation Additional Past Surgical History / Comment(s): left elbow surg., cyst removed from neck, LT THYROID LOBECTOMY WITH FROZEN BX., gastric bypass, EGD Past Anesthesia/Blood Transfusion Reactions: Family History of Problems w/ Anesthesia, Postoperative Nausea & Vomiting (PONV) Additional Past Anesthesia/Blood Transfusion Reaction / Comment(s): PATIENT HAS PONV AND MIGRAINE HEADACHE. GRANDMOTHER HAS PONV & MIGRAINES ALSO. Smoking Status: Never smoker - Past Family History Mother Family Medical History: Cancer Additional Family Medical History / Comment(s): MS Father Family Medical History: Hyperlipidemia Medications and Allergies Home Medications Medication Instructions Recorded Confirmed Type Acetaminophen [Tylenol Extra 1,000 mg PO Q8H PRN 08/24/21 08/24/21 History Strength] Allergies Allergy/AdvReac Type Severity Reaction Status Date / Time hydrocodone bitartrate Allergy Anaphylaxis Verified 08/24/21 12:12 [From Vicodin] iodine Allergy Rash/Hives Verified 08/24/21 12:12 latex Allergy Rash/Hives Verified 08/24/21 12:12 shellfish derived [Shellfish] Allergy Swelling Verified 08/24/21 12:12 adhesive AdvReac blisters,red Verified 08/24/21 12:12 skin hydrocodone [From [place]] AdvReac Anaphylaxis Verified 08/24/21 12:12 Physical Examination Osteopathic Statement: *. No significant issues noted on an osteopathic structural exam other than those noted in the History and Physical/Consult.
[~2021-08-26 08:24] MED LIST changes: -DEXAMETHASONE SOD PHOSPHATE 10 MG/ML 1 ML VIAL IV NR; +DEXAMETHASONE SOD PHOSPHATE 4 MG/ML 1 ML VIAL IV ONE; +HYDROmorphone 0.5 MG/0.5 ML SYRINGE IVP PRN; +LACTATED RINGERS 1,000 ML IV SCH; -ONDANSETRON 4 MG/2 ML VIAL IVP NR; +ONDANSETRON 4 MG/2 ML VIAL IVP ONE; +Pre Op ABX Message 1 EACH MISC MISCELLANE ONE; -SODIUM CHLORIDE 0.9% 500 ML 500 ML in EMPTY BAG 1 BAG IV PRN
[2021-08-26 08:50] VITALS: TEMP 96.8
[2021-08-26] MEDS ORDERED: SCOPOLAMINE 1 MG/72 HR PATCH TRANSDERM ONE (09:30)
[2021-08-26] MEDS ORDERED: MIDAZOLAM 2 MG/2 ML VIAL ONE (09:34)
[2021-08-26] MEDS ORDERED: KETOROLAC 15 MG/ML 1 ML VIAL ONE (09:34)
[2021-08-26] MEDS ORDERED: PROPOFOL 10 MG/ML 20 ML VIAL IV ONE (09:34)
[2021-08-26] MEDS ORDERED: fentaNYL (PF) 50 MCG/ML 2 ML AMP ONE (09:34)
[2021-08-26] MEDS ORDERED: BUPIVACAINE (PF) 0.5% 30 ML VIAL SQ ONE ×2 (09:39)
[2021-08-26] MEDS ORDERED: LIDOCAINE 1% INJ 10MG/ML (20 ML MDV) SQ ONE ×2 (09:39)
[2021-08-26 10:20] VITALS: RESP 20
[2021-08-26 11:09] VITALS: BP 102/70; PULSE 70
--- NOTE | 2021-08-26 19:34 | P.OP ---
Date of Procedure: 08/26/21 Preoperative Diagnosis: Right carpal tunnel syndrome Postoperative Diagnosis: Right carpal tunnel syndrome Procedure(s) Performed: Right endoscopic carpal tunnel release Anesthesia: MAC Surgeon: Ryan Torres Chief Building Inspector #1: Willy Tinsley Pathology: none sent Condition: stable Disposition: PACU Description of Procedure: This is a 41 year old female who presents today for a right endoscopic carpal tunnel release after having failed conservative treatment in the past. Risks and benefits of surgery were discussed with the patient including bleeding, damage to surrounding tissue, infection, need to convert to open procedure, need for further surgery as well as risks of anesthesia including pulmonary embolism and even and the patient wished to proceed with surgical intervention. The patients was seen in the pre-operative area by myself. Consent and H&P were completed and updated. The correct extremity was marked in the pre-operative area by myself and all other questions were answered. Operative Narrative: The patient was brought to the operating room by the department of anesthesia. They remained on the portable stretcher and a rolling hand table was brought to the side of the operative extremity. Pre-operative time out was performed indicating the correct patient, procedure and laterality. All in the room agreed. The patient was then drifted off to sleep by the department of anesthesia. MAC anesthesia was utilized and a 50:50 mixture of 1% Lidocaine and 0.5% bupivacaine was injected into the subcutaneous tissues of the palmar skin, 8ccs total. A nonsterile tourniquet was then applied to the operative extremity and the right upper extremity was then prepped and draped in normal sterile fashion. The operative extremity was the exsanguinated with an esmarch bandage and the tourniquet was inflated to 250mmHg. 15 blade scalpel was utilized to make a transverse incision on the palmar skin just ulnar to the palmaris longus tendon at the level of the distal wrist crease. Ragnell retractor was then placed radially and blunt dissection was performed to reveal the distal forearm fascia. This was lifted with fine Pawel pick ups and Littler tenotomy scissors were then used to open the forearm fascia transversely and a double skin hook was then placed. Hamate finder was placed into the carpal tunnel and then sequential sized dilators were inserted followed by the synovial elevator to separate the flexor tenosynovium from the undersurface of the transverse carpal ligament and a washboard texture was felt. The MicroAire endoscopic carpal tunnel release system gun was the then inserted into the carpal tunnel hugging the deep portion of the transverse carpal ligament in line with the base of the ring finger. Transverse fibers of the ligament were directly visualized. Pressure was applied on the palm to reveal t he distal extent of the transverse carpal ligament. The blade was then deployed and the distal half of the transverse carpal ligament was released. The scope was then brought distal again and remaining transverse fibers were incised with the blade. The proximal half of the transverse carpal ligament was then divided and again the scope was advanced distal and remaining transverse fibers were incised with the blade. The radial and ulnar leaflets were directly visualized and mobile consistent with complete release. Tenotomy scissors were then utilized to release the remaining distal forearm fascia under direct visualization taking care to preserve the palmar cutaneous branch of the median nerve. Skin closure was performed with interrupted 4-0 Monocryl suture followed by adaptic. Sterile dressing was applied consisting of 4x4s, Webril, and an delgado bandage. Tourniquet was let down and the hand immediately was well perfused. The patient was then woken by the department of anesthesia and transferred to PACU in stable condition. Willy DICKERSON was present for the case in its entirety and assisted in major portions of the case and protection of vital neurovascular structures. Ryan Torres D.O. Orthopedic Hand/Upper Extremity Surgeon
== END 2021-08-26 11:12 | disposition home or self-care (01) ==
LOC: OR 08:24
PROVIDERS: ATTEND Orthopaedic Surgery Hand Surgery
DX: G56.01 Carpal tunnel syndrome, right upper limb (principal); M19.90 Unspecified osteoarthritis, unspecified site; G47.30 Sleep apnea, unspecified; E04.2 Nontoxic multinodular goiter; Z98.84 Bariatric surgery status; Z90.49 Acquired absence of other specified parts of digestive tract; Z98.51 Tubal ligation status; Z98.890 Other specified postprocedural states; Z80.9 Family history of malignant neoplasm, unspecified; Z82.69 Family history of other diseases of the musculoskeletal system and connective tissue; Z83.438 Family history of other disorder of lipoprotein metabolism and other lipidemia; Z91.040 Latex allergy status; Z88.5 Allergy status to narcotic agent; Z91.048 Other nonmedicinal substance allergy status; Z91.09 Other allergy status, other than to drugs and biological substances
CPT/HCPCS: 81025; 29848; J2250; J1100; J2405; J2001; J3010; J1885; J2704

== ENCOUNTER → 2021-11-25 | Outpatient (CLI) | payer OTHER ==
[2021-11-25 18:11] LABS: Basophils # (A) 0.03 X 10*3/uL (0.00-0.10); Basophils % (A) 0.7 %; Eosinophils # (A) 0.03 X 10*3/uL (0.04-0.35); Eosinophils % (A) 0.7 %; HCT 37.4 % (37.2-46.3); HGB 11.7 g/dL (12.0-15.0); Immature Grans, Automated 0.5 %; MCH 28.1 pg (27.0-32.0); MCHC 31.3 g/dL (32.0-37.0); MCV 89.9 fL (80.0-97.0); Mean Platelet Volume 10.6 fL (9.5-12.2); Monocytes # (A) 0.26 X 10*3/uL (0.20-1.00); Monocytes % (A) 6.2 %; NRBC Per 100 WBC 0 /100 WBCS (0.0-0.0); Neutrophils # (A) 2.33 X 10*3/uL (1.80-7.70); Neutrophils % (A) 55.9 %; Platelet Count 277 X 10*3/uL (140-440); RBC 4.16 X 10*6/uL (4.10-5.20); RDW 12.8 % (11.5-14.5); WBC 4.17 X 10*3/uL (4.50-10.00)
[2021-11-25 18:27] LABS: Erythrocyte Sedimentation Rate 11 mm/Hr (0-20)
[2021-11-25 18:36] LABS: % Iron Saturation 13.03 (12.00-45.00); ALT 10 U/L (8-44); AST 20 U/L (13-35); African American GFR (CKD) 106.9 (60.0-200.0); Albumin 4.4 g/dL (3.8-4.9); Albumin/Globulin Ratio 1.76 (1.60-3.17); Alkaline Phosphatase 48 U/L (41-126); BUN/Creat Ratio 11.75 Ratio (12.00-20.00); Blood Urea Nitrogen 9.4 mg/dL (9.0-27.0); Calcium 9.4 mg/dL (8.7-10.3); Carbon Dioxide 26.3 mmol/L (20.0-27.5); Chloride 104 mmol/L (96-109); Ferritin 11.1 ng/mL (10.0-291.0); Globulin 2.5 g/dL (1.6-3.3); Glucose 89 mg/dL (70-110); Iron 56 ug/dL (50-170); LDL Cholesterol,Calculated 99.4 mg/dL (0.0-131.0); Magnesium 1.9 mg/dL (1.5-2.4); Non-African American GFR(CKD) 92.2 (60.0-200.0); Sodium 142 mmol/L (135-145); Total Iron Binding Capacity 428 ug/dL (228-460); Total Protein 6.9 g/dL (6.2-8.2); VLDL Calculation 14.44 mg/dL (5.00-40.00)
== END | disposition home or self-care (01) ==
LOC: LABWHC1 13:29
PROVIDERS: ATTEND Family Medicine
DX: R53.83 Other fatigue (principal); Z98.84 Bariatric surgery status
CPT/HCPCS: 36415; 80053; 80061; 82306; 82607; 82728; 82746; 83540; 83550; 83735; 84425; 84439; 84443; 85025; 85652

== ENCOUNTER → 2022-04-23 | Outpatient (CLI) | payer OTHER ==
--- NOTE | 2022-04-23 14:32 | XR ---
EXAMINATION TYPE: XR abdomen complete w decub DATE OF EXAM: 04/23/2022 COMPARISON: 04/28/2021 HISTORY: Mid abdominal pain, history of gastric bypass TECHNIQUE: Supine, upright, and left side down lateral decubitus views of the abdomen are obtained. FINDINGS: There is no evidence for pneumoperitoneum. Gas and stool throughout the colon. No dilated small bowel loops. No air-fluid levels. No mass effects are seen. Scattered pelvic phleboliths. Surgical clips in the pelvis and projecting over the gallbladder fossa. Degenerative changes of the lumbar spine particularly at L4-L5 and L5-S1. IMPRESSION: Moderate stool throughout the colon. No acute process.
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
[2022-04-24 01:12] LABS: African American GFR (CKD) 115.9 (60.0-200.0); Albumin 4.3 g/dL (3.8-4.9); Albumin/Globulin Ratio 1.96 (1.60-3.17); Anion Gap 9.8 mmol/L (10.00-18.00); BUN/Creat Ratio 12.12 Ratio (12.00-20.00); Calcium 9.6 mg/dL (8.7-10.3); Carbon Dioxide 26.8 mmol/L (20.0-27.5); Globulin 2.2 g/dL (1.6-3.3); Potassium 4.2 mmol/L (3.5-5.5); Total Bilirubin 0.6 mg/dL (0.30-1.20); Total Protein 6.5 g/dL (6.2-8.2)
== END | disposition home or self-care (01) ==
LOC: LABWHC1 12:50
PROVIDERS: ATTEND Family Medicine
DX: M25.511 Pain in right shoulder (principal); R10.9 Unspecified abdominal pain; R10.13 Epigastric pain; Z98.84 Bariatric surgery status
CPT/HCPCS: 36415; 74021; 80053; 82150; 83690

== ENCOUNTER → 2022-04-28 | Outpatient (CLI) | payer OTHER ==
--- NOTE | 2022-04-28 16:10 | XR ---
EXAMINATION TYPE: XR cervical spine comp DATE OF EXAM: 04/28/2022 COMPARISON: NONE HISTORY: Right-sided neck pain TECHNIQUE: Four views are submitted. FINDINGS: The odontoid is intact. There are no compression deformities. The prevertebral soft tissue structur es are within normal limits. Small bilateral cervical ribs moderate to severe degenerative disc dise ase C5-6 and C6-C7 with hypertrophic spurring. IMPRESSION: 1. Moderate to severe degenerative disc disease C5-6 and C6-C7. Likely associated mild foraminal encr oachment. Consider follow-up MRI.
== END | disposition home or self-care (01) ==
LOC: RADXRMAIN 15:05
PROVIDERS: ATTEND Family Medicine
DX: M50.122 Cervical disc disorder at C5-C6 level with radiculopathy (principal)
CPT/HCPCS: 72050

== ENCOUNTER → 2022-08-24 | Outpatient (CLI) | payer OTHER ==
[2022-08-24 16:01] LABS: ALT 10 U/L (8-44); AST 17 U/L (13-35); African American GFR (CKD) 106.1 (60.0-200.0); Albumin 4.1 g/dL (3.8-4.9); Albumin/Globulin Ratio 2.05 (1.60-3.17); Alkaline Phosphatase 43 U/L (41-126); BUN/Creat Ratio 15.63 Ratio (12.00-20.00); Blood Urea Nitrogen 12.5 mg/dL (9.0-27.0); Calcium 9.1 mg/dL (8.7-10.3); Chloride 107 mmol/L (96-109); Chol/HDL Ratio 2.53 Ratio; Glucose 89 mg/dL (70-110); LDL Cholesterol,Calculated 87.8 mg/dL (0.0-131.0); Non-African American GFR(CKD) 91.6 (60.0-200.0); Potassium 3.9 mmol/L (3.5-5.5); Sodium 143 mmol/L (135-145); Total Protein 6.1 g/dL (6.2-8.2); VLDL Calculation 9.46 mg/dL (5.00-40.00)
[2022-08-24 18:06] LABS: HIV 2 AB Non-Reactive (Non-Reactive); HIV AB P24 Non-Reactive (Non-Reactive); HIV P24 AG Non-Reactive (Non-Reactive)
== END | disposition home or self-care (01) ==
LOC: LABWHC1 08:11
PROVIDERS: ATTEND Family Medicine
DX: Z00.00 Encounter for general adult medical examination without abnormal findings (principal); Z11.4 Encounter for screening for human immunodeficiency virus [HIV]
CPT/HCPCS: 36415; 80053; 80061; 82306; 83036; 84443; 87390

== ENCOUNTER → 2023-10-14 | Outpatient (CLI) | payer OTHER ==
--- NOTE | 2023-10-14 16:23 | US ---
EXAMINATION TYPE: US venous doppler duplex LE RT DATE OF EXAM: 10/14/2023 3:17 PM COMPARISON: NONE CLINICAL INDICATION: Female, 43 years old with history of M79.604 PAIN IN RIGHT LEG; Right leg pain SIDE PERFORMED: Right TECHNIQUE: The lower extremity deep venous system is examined utilizing real time linear array sonog paul with graded compression, doppler sonography and color-flow sonography. VESSELS IMAGED: Common Femoral Vein Deep Femoral Vein Greater Saphenous Vein * Femoral Vein Popliteal Vein Small Saphenous Vein * Proximal Calf Veins (* superficial vessels) Results called to Radha at 's office at time of exam The deep venous system of the right lower extremity from the common femoral vein to the proximal calf veins is patent and compressible with augmentable flow with normal waveforms. IMPRESSION: No evidence of right lower extremity DVT from the common femoral vein to the proximal calf veins
--- NOTE | 2023-10-14 16:26 | XR ---
EXAMINATION TYPE: XR knee complete RT DATE OF EXAM: 10/14/2023 CLINICAL HISTORY: pain TECHNIQUE: Three views of the right knee are obtained. COMPARISON: None. FINDINGS: There is no acute fracture/dislocation. The tri-compartment joint spaces appear within no rmal limits. The overlying soft tissue appears unremarkable. Small right-sided effusion noted. IMPRESSION: There is no acute fracture or dislocation.ICD 10 NO FRACTURE, INITIAL EVALUATION
== END | disposition home or self-care (01) ==
LOC: RADUSWWP 14:54
PROVIDERS: ATTEND Family Medicine
DX: M79.604 Pain in right leg (principal)

== ENCOUNTER → 2023-10-18 | Outpatient (CLI) | payer OTHER ==
[2023-10-18 10:27] LABS: HCT 28.8 % (37.2-46.3); HGB 8.5 g/dL (12.0-15.0); MCH 22.6 pg (27.0-32.0); MCHC 29.5 g/dL (32.0-37.0); MCV 76.6 FL (80.0-97.0); Mean Platelet Volume 10.5 FL (9.5-12.2); NRBC Per 100 WBC 0 X 10*3/uL (0.00-0.01); Platelet Count 309 X 10*3/uL (140-440); RBC 3.76 X 10*6/uL (4.10-5.20); RDW 17.4 % (11.5-14.5); WBC 3.49 X 10*3/uL (4.50-10.00)
[2023-10-18 10:28] LABS: Basophils # (A) 0.02 X 10*3/uL (0.00-0.10); Basophils % (A) 0.6 %; Eosinophils # (A) 0.06 X 10*3/uL (0.04-0.35); Eosinophils % (A) 1.7 %; Lymphocytes # (A) 1.39 X 10*3/uL (0.90-5.00); Lymphocytes % (A) 39.8 %; Monocytes # (A) 0.25 X 10*3/uL (0.20-1.00); Monocytes % (A) 7.2 %; Neutrophils # (A) 1.76 X 10*3/uL (1.80-7.70); Neutrophils % (A) 50.4 %
[2023-10-18 11:09] LABS: % Iron Saturation 5.41 (12.00-45.00); ALT 15 U/L (8-44); AST 21 U/L (13-35); Albumin 4.3 g/dL (3.8-4.9); Albumin/Globulin Ratio 2.05 Ratio (1.60-3.17); Alkaline Phosphatase 48 U/L (41-126); BUN/Creat Ratio 17.14 Ratio (12.00-20.00); Carbon Dioxide 24.5 mmol/L (21.6-31.8); Chloride 106 mmol/L (96-109); Chol/HDL Ratio 2.71 Ratio; Ferritin 5.7 ng/mL (10.0-291.0); Globulin 2.1 g/dL (1.6-3.3); Glucose 92 mg/dL (70-110); Iron 25 UG/DL (50-170); LDL Cholesterol,Calculated 89.2 mg/dL (0.0-131.0); Potassium 4.3 mmol/L (3.5-5.5); Sodium 141 mmol/L (135-145); Total Bilirubin 0.3 mg/dL (0.3-1.2); Total Iron Binding Capacity 462 UG/DL (228-460); Total Protein 6.4 g/dL (6.2-8.2); VLDL Calculation 12.96 mg/dL (5.00-40.00)
== END | disposition home or self-care (01) ==
LOC: LABWHC1 07:09
PROVIDERS: ATTEND Family Medicine
DX: F50.89 Other specified eating disorder (principal); E55.9 Vitamin D deficiency, unspecified; R73.9 Hyperglycemia, unspecified
CPT/HCPCS: 36415; 80053; 80061; 82306; 82607; 82728; 82746; 83036; 83540; 83550; 84443; 85025

== ENCOUNTER → 2023-11-14 | Outpatient (CLI) | payer OTHER ==
[2023-11-14 19:04] LABS: HGB 9.2 g/dL (12.0-15.0); MCH 22.7 pg (27.0-32.0); MCHC 29.7 g/dL (32.0-37.0); MCV 76.4 FL (80.0-97.0); Mean Platelet Volume 10.5 FL (9.5-12.2); NRBC Per 100 WBC 0 X 10*3/uL (0.00-0.01); Platelet Count 389 X 10*3/uL (140-440); RBC 4.06 X 10*6/uL (4.10-5.20); RDW 17.4 % (11.5-14.5); WBC 5.53 X 10*3/uL (4.50-10.00)
[2023-11-14 19:10] LABS: % Iron Saturation 2.98 (12.00-45.00); Ferritin 5.1 ng/mL (10.0-291.0)
== END | disposition home or self-care (01) ==
LOC: LABWHC1 13:01
PROVIDERS: ATTEND Family Medicine
DX: D50.9 Iron deficiency anemia, unspecified (principal)
CPT/HCPCS: 36415; 82728; 83540; 83550; 85027

== ENCOUNTER 2023-12-05 20:53 | Emergency (ER) | payer OTHER ==
--- NOTE | 2024-01-05 18:35 | US ---
Patient: Jazmin Sandoval Ordering Physician: Unknown, Unknown ID: [id number] Phone, Pager: Phone: N/A Dion jackie: N/A : 1980 Age/Gender: 43Y, O Primary Location: N/A Procedure: US venous doppler duplex LE BI Study Date: 12/05/2023 10:03:00 PM EXAMINATION TYPE: US venous doppler duplex LE BI DATE OF EXAM: 12/17/2023 3:44 PM COMPARISON: NONE CLINICAL INDICATION:RULE OUT DVT. PT LONG CAR RIDE, LEG PAIN SIDE PERFORMED: Bilateral TECHNIQUE: The lower extremity deep venous system is examined utilizing real time linear array sonog paul with graded compression, doppler sonography and color-flow sonography. VESSELS IMAGED: Common Femoral Vein Deep Femoral Vein Greater Saphenous Vein * Femoral Vein Popliteal Vein Small Saphenous Vein * Proximal Calf Veins (* superficial vessels) Right Leg: Negative for DVT Left Leg: Negative for DVT IMPRESSION: Grayscale, color doppler, spectral doppler imaging performed of the deep veins of the lo wer extremities. There is normal flow, compressibility, vascular waveforms.
== END 2023-12-05 23:40 | disposition home or self-care (01) ==
LOC: EC 20:53
CPT/HCPCS: 93970; 99283

== ENCOUNTER 2023-12-06 22:45 | Emergency (ER) | payer OTHER ==
[2023-12-07] MEDS ORDERED: HYDROmorphone 0.5 MG/0.5 ML SYRINGE ONE (00:36)
[2023-12-07] MEDS ORDERED: MORPHINE SULFATE 4 MG/ML SYRINGE ONE (02:54)
[2023-12-07] MEDS ORDERED: ACET/COD 300 MG/30 MG STARTER PACK 6 TAB BTL PO ONE (03:37)
--- NOTE | 2024-01-11 15:31 | CT ---
EXAM: CT Right Lower Extremity Without Intravenous Contrast, Knee CLINICAL HISTORY: unable to bear weight TECHNIQUE: Axial computed tomography images of the right knee without intravenous contrast. CTDI is 4.5 mGy and DLP is 135.4 mGy-cm. This CT exam was performed using one or more of the following dose reduction techniques: automated exposure control, adjustment of the mA and/or kV according to patient size, and/or use of iterative reconstruction technique. COMPARISON: No relevant prior studies available. FINDINGS: Bones/joints: Medial subcutaneous edema, concerning for MCL sprain. MRI recommended. No acute fracture. No dislocation. Soft tissues:Unremarkable. IMPRESSION: No fracture or subluxation. Medial subcutaneous edema, concerning for MCL sprain. MRI recommended. Radiologist: Allan Benjamin MD Electronically Signed: 12/07/23 03:04 Study ready at 01:44 and initial results transmitted at 03:04 Results also transmitted to Film Room, Film Room @ [phone] (Fax) [facility]
== END 2023-12-07 03:42 | disposition home or self-care (01) ==
LOC: EC 22:45
DX: M25.561 Pain in right knee (principal)
CPT/HCPCS: 99283 ×2; 96372 ×3; 73700; L1830; J2270; J1170

== ENCOUNTER 2024-04-29 18:31 | Emergency (ER) | payer OTHER ==
[2024-04-29 18:45] VITALS: RESP 16; TEMP 98.2
--- NOTE | 2024-04-29 18:49 | ED ---
Skin/Abscess/FB HPI - General Chief complaint: Skin/Abscess/Foreign Body Stated complaint: Lump in right breast Time Seen by Provider: 04/29/24 18:47 Source: patient, RN notes reviewed Mode of arrival: ambulatory Limitations: no limitations - History of Present Illness Initial comments: This is a 44-year-old female with no significant medical history presenting to the emergency department with complaint of a painful mass to her right breast over the past 4 to 5 months. Patient states that the mass is painful on palpation and with pressure from her bra otherwise does not cause her discomfort. She is unaware if the mass has been fluctuating in size. She denies surrounding erythema, purulence, nipple discharge, breast swelling. Patient states that she normally has annual mammograms however is scheduled for upcoming mammogram with her last being over 1 year ago. She denies fevers, chills, unintended weight loss, abdominal pain, nausea or vomiting. Denies history of breast cancer or familial history of breast cancer. - Related Data Home Medications Medication Instructions Recorded Confirmed Acetaminophen [Tylenol Extra 1,000 mg PO Q8H PRN 08/24/21 02/06/24 Strength] Allergies Allergy/AdvReac Type Severity Reaction Status Date / Time hydrocodone bitartrate Allergy Anaphylaxis Verified 04/29/24 18:45 [From Vicodin] iodine Allergy Rash/Hives Verified 04/29/24 18:45 latex Allergy Rash/Hives Verified 04/29/24 18:45 peanut Allergy Anaphylaxis Verified 04/29/24 18:45 shellfish derived [Shellfish] Allergy Swelling Verified 04/29/24 18:45 adhesive AdvReac blisters,red Verified 04/29/24 18:45 skin hydrocodone [From [place]] AdvReac Anaphylaxis Verified 04/29/24 18:45 Review of Systems ROS Statement: Those systems with pertinent positive or pertinent negative responses have been documented in the HPI. ROS Other: All systems not noted in ROS Statement are negative. Past Medical History Past Medical History: Osteoarthritis (OA), Sleep Apnea/CPAP/BIPAP, Thyroid Disorder Additional Past Medical History / Comment(s): thyroid nodules, hx. anemia, migraines, Sleep Apnea- no machine., neck and lower back pain. History of Any Multi-Drug Resistant Organisms: None Reported Past Surgical History: Cholecystectomy, Orthopedic Surgery, Tonsillectomy, Tubal Ligation Additional Past Surgical History / Comment(s): left elbow surg., cyst removed from neck, LT THYROID LOBECTOMY WITH FROZEN BX., gastric bypass Past Anesthesia/Blood Transfusion Reactions: Family History of Problems w/ Anesthesia, Postoperative Nausea & Vomiting (PONV) Additional Past Anesthesia/Blood Transfusion Reaction / Comment(s): PATIENT HAS PONV AND MIGRAINE HEADACHE. GRANDMOTHER HAS PONV & MIGRAINES ALSO. Past Psychological History: Anxiety, Depression Smoking Status: Vaper Past Alcohol Use History: None Reported Past Drug Use History: None Reported - Past Family History Mother Family Medical History: Cancer Additional Family Medical History / Comment(s): MS Father Family Medical History: Hyperlipidemia General Exam Limitations: no limitations General appearance: alert, in no apparent distress ENT exam: Present: normal exam, mucous membranes moist Respiratory exam: Present: normal lung sounds bilaterally. Absent: respiratory distress, wheezes, rales, rhonchi, stridor Cardiovascular Exam: Present: regular rate, normal rhythm, normal heart sounds. Absent: systolic murmur, diastolic murmur, rubs, gallop, clicks GI/Abdominal exam: Present: soft, normal bowel sounds. Absent: distended, tenderness, guarding, rebound, rigid Extremities exam: Present: normal inspection, full ROM, normal capillary refill. Absent: tenderness, pedal edema, joint swelling, calf tenderness Back exam: Present: normal inspection Expanded Description of rash: Present: other (right breast mass at the 6 oclock position that is flucutant, aprox. 2 cm in diameter with no surrounding erythema, nipple discharge, or induration) Course Vital Signs 04/29/24 04/29/24 18:42 22:19 Temperature 98.2 F Pulse Rate 92 68 Respiratory 16 16 Rate Blood Pressure 111/73 94/64 O2 Sat by Pulse 98 100 Oximetry Medical Decision Making - Medical Decision Making Was pt. sent in by a medical professional or institution (, PA, ARMATURE BALANCER, urgent care, hospital, or fpc...) When possible be specific @ -No Did you speak to anyone other than the patient for history (EMS, parent, family, police, friend...)? What history was obtained from this source @ -No Did you review nursing and triage notes (agree or disagree)? Why? @ -I reviewed and agree with nursing and triage notes Were old charts reviewed (outside hosp., previous admission, EMS record, old EKG, old radiological studies, urgent care reports/EKG's, fpc records)? Report findings @ -No old charts were reviewed Differential Diagnosis (chest pain, altered mental status, abdominal pain women, abdominal pain men, vaginal bleeding, weakness, fever, dyspnea, syncope, headache, dizziness, GI bleed, back pain, seizure, CVA, palpatations, mental health, musculoskeletal)? @ -Fibroadenoma, breast abscess, malignancy, this list is not all inclusive EKG interpreted by me (3pts min.). @ -none X-rays interpreted by me (1pt min.). @ -None CT interpreted by me (1pt min.). @ -None done U/S interpreted by me (1pt. min.). @ -Ultrasound of the right breast is remarkable for no drainage of the right breast fluid collection or abscess with an indeterminate 2-1/2 x 1/2 cm heterogeneous lesion at the 4 o'clock position approximately 7 mm from the nipple. What testing was considered but not performed or refused? (CT, X-rays, U/S, labs)? Why? @ -None What meds were considered but not given or refused? Why? @ -None Did you discuss the management of the patient with other professionals (professionals i.e. , PA, ARMATURE BALANCER, lab, RT, psych nurse, rn social services, church history professor, teacher, special assets officer, case management social worker)? Give summary @ -No Was smoking cessation discussed for >3mins.? @ -No Was critical care preformed (if so, how long)? @ -No Were there social determinants of health that impacted care today? How? (Homelessness, low income, unemployed, alcoholism, drug addiction, transportation, low edu. Level, literacy, decrease access to med. care, longterm, rehab)? @ -No Was there de-escalation of care discussed even if they declined (Discuss DNR or withdrawal of care, Hospice)? DNR status @ -No What co-morbidities impacted this encounter? (DM, HTN, Smoking, COPD, CAD, Cancer, CVA, ARF, Chemo, Hep., AIDS, mental health diagnosis, sleep apnea, morbid obesity)? @ -None Was patient admitted / discharged? Hospital course, mention meds given and route, prescriptions, significant lab abnormalities, going to OR and other pertinent info. @ -Discharge. 44-year-old female presents emergency room with painful right breast mass. On examination there is a fluctuant mass approximately 2 cm in diameter with no overlying erythema. There is no nipple discharge or induration of the right breast. Ultrasound remarkable for a 2-1/2 x 1/2 cm heterogeneous lesion with no evidence of fluid collection or abscess. Patient provided with follow-up for breast surgeon and instructed to complete outpatient mammogram for further evaluation of breast mass. Recommend that she continue Tylenol and Motrin as needed for pain. Case discussed with Dr. Garcia Undiagnosed new problem with uncertain prognosis? @ -No Drug Therapy requiring intensive monitoring for toxicity (Heparin, Nitro, Insulin, Cardizem)? @ -No Were any procedures done? @ -No Diagnosis/symptom? @ -Right breast mass Acute, or Chronic, or Acute on Chronic? @ -Acute Uncomplicated (without systemic symptoms) or Complicated (systemic symptoms)? @ -Uncomplicated Side effects of treatment? @ -No Exacerbation, Progression, or Severe Exacerbation? @ -No Poses a threat to life or bodily function? How? (Chest pain, [place], [place], pneumonia, PE, COPD, DKA, ARF, appy, cholecystitis, CVA, Diverticulitis, Homicidal, Suicidal, threat to staff... and all critical care pts) @ -No Disposition Clinical Impression: Breast mass Disposition: HOME SELF-CARE Condition: Stable Instructions (If sedation given, give patient instructions): Breast Mass (ED) Additional Instructions: Please return to the Emergency Department if symptoms worsen or any other concerns. It is recommend they follow-up with provided breast specialist in addition to receiving outpatient mammogram Is patient prescribed a controlled substance at d/c from ED?: No Referrals: Nonstaff,Physician [Primary Care Provider] - 1-2 days Cara Quezada MD [STAFF PHYSICIAN] - 1-2 days Time of Disposition: 22:07
[2024-04-29 22:35] VITALS: BP 94/64; PULSE 68
--- NOTE | 2024-04-30 08:53 | USB ---
Reason for Exam: Clinical finding. Risk Values: Ekaterina 5 year model risk: 0.5%. NCI Lifetime model risk: 6.5%. Technique: Method: Targeted. Findings: The area of palpable concern of the right breast, the axilla of the right breast and the retroareolar of the right breast were scanned. Electronically signed and approved by: Kyler Kowalski DO
== END 2024-04-29 22:19 | disposition home or self-care (01) ==
LOC: EC 18:31
DX: N63.10 Unspecified lump in the right breast, unspecified quadrant (principal); F17.290 Nicotine dependence, other tobacco product, uncomplicated; Z91.010 Allergy to peanuts; Z91.013 Allergy to seafood; Z91.040 Latex allergy status; Z91.048 Other nonmedicinal substance allergy status; Z88.5 Allergy status to narcotic agent
CPT/HCPCS: 99283

== ENCOUNTER 2024-07-06 06:08 | Day surgery (SDC) | payer OTHER ==
[2024-07-04 14:22] VITALS: BMI 31.3
[~2024-07-06 06:08] MED LIST changes: +ACETAMINOPHEN TAB 500 MG TAB PO PRN; -DEXAMETHASONE SOD PHOSPHATE 4 MG/ML 1 ML VIAL IV ONE; -HYDROmorphone 0.5 MG/0.5 ML SYRINGE IVP PRN; -LACTATED RINGERS 1,000 ML IV SCH; -ONDANSETRON 4 MG/2 ML VIAL IVP ONE; +SCOPOLAMINE 1 MG/72 HR PATCH TRANSDERM ONE
[2024-07-06] MEDS: IV FLUID CONTINUATION 1,000 ML IV ONE ×2 (06:48→09:05)
[2024-07-06] MEDS: LACTATED RINGERS 1,000 ML IV SCH (06:56)
[2024-07-06 06:58] VITALS: RESP 16
[2024-07-06] MEDS: DEXAMETHASONE SOD PHOSPHATE 4 MG/ML 1 ML VIAL IV ONE (07:20)
[2024-07-06] MEDS: MIDAZOLAM 2 MG/2 ML VIAL IV PRN (07:20)
[2024-07-06] MEDS: ONDANSETRON 4 MG/2 ML VIAL IVP ONE (07:20)
[2024-07-06] MEDS: HEPARIN SODIUM,PORCINE 5,000 UNIT/ML 1 ML VIAL SQ PRN (07:28)
[2024-07-06] MEDS ORDERED: LIDOCAINE 1% INJ 10MG/ML (20 ML MDV) ONE (07:30)
[2024-07-06] MEDS ORDERED: MIDAZOLAM 2 MG/2 ML VIAL ONE (07:30)
[2024-07-06] MEDS ORDERED: diphenhydrAMINE 50 MG/ML 1 ML VIAL ONE (07:30)
[2024-07-06] MEDS ORDERED: PROPOFOL 10 MG/ML 20 ML VIAL IV ONE (07:30)
[2024-07-06] MEDS ORDERED: fentaNYL (PF) 50 MCG/ML 2 ML AMP ONE (07:30)
[2024-07-06] MEDS: ceFAZolin 1,000 MG VIAL IVPB ONE (07:35)
--- NOTE | 2024-07-06 07:35 | P.GSHP ---
History of Present Illness H&P Date: 07/06/24 Chief Complaint: Right breast cancer 44-year-old female here for Port-A-Cath placement. Newly diagnosed right breast cancer. Starting neoadjuvant chemotherapy for that. Past Medical History Past Medical History: Cancer, Osteoarthritis (OA), Sleep Apnea/CPAP/BIPAP, Thyroid Disorder Additional Past Medical History / Comment(s): Current right breast cancer with pain, states pain in left breast last 2 days, thyroid nodules, hx anemia, migraines, Sleep Apnea- no machine, neck and lower back pain, IBS, low blood pressure. History of Any Multi-Drug Resistant Organisms: None Reported Past Surgical History: Cholecystectomy, Hysterectomy, Orthopedic Surgery, Tonsillectomy, Tubal Ligation Additional Past Surgical History / Comment(s): Right breast biopsy X2, left elbow surgery, cyst removed from neck, LT THYROID LOBECTOMY WITH FROZEN BX, gastric bypass. Past Anesthesia/Blood Transfusion Reactions: Postoperative Nausea & Vomiting (PONV) Additional Past Anesthesia/Blood Transfusion Reaction / Comment(s): PATIENT SOMETIMES HAS PONV AND MIGRAINE HEADACHE. GRANDMOTHER HAS PONV & MIGRAINES ALSO. Past Psychological History: Anxiety, Depression Smoking Status: Vaper Past Alcohol Use History: Rare Additional Past Alcohol Use History / Comment(s): Use to vape, quit , had vaped for 3 yrs. Very rare alcohol use. Past Drug Use History: None Reported - Past Family History Mother Family Medical History: Cancer Additional Family Medical History / Comment(s): MS. Father Family Medical History: Hyperlipidemia Medications and Allergies Home Medications Medication Instructions Recorded Confirmed Type Collagen Powder 1 dose PO DAILY 07/04/24 07/06/24 History Allergies Allergy/AdvReac Type Severity Reaction Status Date / Time adhesive Allergy blisters,red Verified 07/06/24 06:46 skin hydrocodone [From [place]] Allergy Anaphylaxis Verified 07/06/24 06:46 hydrocodone bitartrate Allergy Anaphylaxis Verified 07/06/24 06:46 [From Vicodin] iodine Allergy Rash/Hives Verified 07/06/24 06:46 latex Allergy Rash/Hives Verified 07/06/24 06:46 peanut Allergy Anaphylaxis Verified 07/06/24 06:46 shellfish derived [Shellfish] Allergy Swelling Verified 07/06/24 06:46 Surgical - Exam Vital Signs Temp Pulse Resp BP Pulse Ox 97.2 F L 60 16 105/56 100 07/06/24 06:56 07/06/24 06:56 07/06/24 06:56 07/06/24 06:56 07/06/24 06:56 Physical exam: General: Well-developed, well-nourished HEENT: Normocephalic, sclerae nonicteric Abdomen: Nontender, nondistended Extremities: No edema Neuro: Alert and oriented Assessment and Plan (1) Breast cancer, right Narrative/Plan: 44-year-old female with newly diagnosed right breast cancer. Will proceed with Port-A-Cath placement at this time. Risks of bleeding, infection, DVT, pneumothorax, catheter malfunction, anesthesia related complications were discussed. The patient understands and wishes to proceed. Current Visit: Yes Status: Acute Code(s): C50.911 - MALIGNANT NEOPLASM OF UNSP SITE OF RIGHT FEMALE BREAST SNOMED Code(s): 441572794
[2024-07-06] MEDS: LIDOCAINE 1% INJ 10MG/ML (20 ML MDV) SQ ONE ×2 (08:00→08:13)
[2024-07-06] MEDS ORDERED: traMADol 50 MG TAB PO PRN (08:39)
[2024-07-06] MEDS ORDERED: NALOXONE 0.4 MG/ML 1 ML VIAL IV PRN (08:39)
--- NOTE | 2024-07-06 08:39 | FL ---
EXAMINATION TYPE: FL guided central line placemt DATE OF EXAM: 07/06/2024 CLINICAL INDICATION: Female, 44 years old with history of C50.911 RIGHT BREAST CANCER, TECHNIQUE: Fluoroscopy. COMPARISON: None. FINDINGS: Fluoroscopic guidance was provided during MediPort insertion procedure performed by Dr. Faisal padilla. A total of 11 seconds of fluoroscopic time was utilized during the procedure and 1 spot intraop erative image is acquired. Images acquired shows tip at the caval atrial junction. TOTAL DAP = 0.4978 Gycm2. IMPRESSION: As Above. [facility], , 07/06/2024 8:36 AM
--- NOTE | 2024-07-06 08:46 | P.OP ---
Date of Procedure: 07/06/24 Procedure(s) Performed: PREOPERATIVE DIAGNOSIS: Right breast cancer POSTOPERATIVE DIAGNOSIS: Same PROCEDURE: Port-A-Cath placement with fluoroscopic and ultrasound guidance SURGEON: Leela EBL: 5 cc ANESTHESIA: General COMPLICATIONS: None OPERATIVE PROCEDURE: Patient was brought and placed on the operative table in the supine position. The patient was placed under general anesthesia at that time. The chest and neck were prepped and draped in usual sterile fashion. The ultrasound probe was used to identify the location of the left internal jugular vein. The skin was localized with lidocaine. The Seldinger needle was advanced into the IJ under ultrasound guidance. The wire was advanced through the needle under fluoroscopic guidance into the superior vena cava. A port pocket was created in the left infraclavicular location. The catheter was tunneled from the wire entrance site to the port pocket. The port was then connected to the catheter. The dilator introducer was threaded over the guidewire. The guidewire and dilator were then removed. The catheter was advanced through the introducer and introducer was then removed. The tip was seen to be in the right atrial junction via fluoroscopy. A picture of the radiograph showing the tip of the catheter was taken. Port was flushed with both saline and a Hep-Lock solution. There was good flow both in and out of the port. The port was sutured in underlying tissues using 3-0 silk sutures. The subcutaneous tissues were reapproximated using 3-0 Vicryl sutures and the skin at both locations using 4-0 Monocryl sutures. Skin glue and sterile dressings then applied. DISPOSITION: Stable to recovery room
[2024-07-06 08:55] VITALS: TEMP 96.8
--- NOTE | 2024-07-06 09:12 | XR ---
EXAMINATION TYPE: XR chest 1V confirm line [facility] DATE OF EXAM: 07/06/2024 CLINICAL INDICATION: Female, 44 years old with history of Check Line placement, TECHNIQUE: Single frontal view of the chest is obtained. COMPARISON: Chest x-ray October 27, 2020 FINDINGS: There is new left internal jugular Mediport catheter with tip at the caval atrial junction. No pneumo thorax is seen. Lungs are grossly clear. Mild Cardiomegaly is present. The osseous structures are i ntact. IMPRESSION: As above. [facility], , 07/06/2024 9:10 AM
[2024-07-06] MEDS: fentaNYL (PF) 50 MCG/ML 2 ML AMP IV PRN (09:17)
[2024-07-06] MEDS: SODIUM CHLORIDE 0.9% 1,000 ML IV SCH (09:36)
[2024-07-06 10:13] VITALS: BP 127/74; PULSE 74
== END 2024-07-06 10:51 | disposition home or self-care (01) ==
LOC: OR 06:08
PROVIDERS: ATTEND Surgery
DX: C50.911 Malignant neoplasm of unspecified site of right female breast (principal); M19.90 Unspecified osteoarthritis, unspecified site; G47.30 Sleep apnea, unspecified; G43.909 Migraine, unspecified, not intractable, without status migrainosus; K58.9 Irritable bowel syndrome, unspecified; G47.33 Obstructive sleep apnea (adult) (pediatric); E89.0 Postprocedural hypothyroidism; F41.9 Anxiety disorder, unspecified; F32.A Depression, unspecified; Z98.51 Tubal ligation status; Z90.89 Acquired absence of other organs; Z90.49 Acquired absence of other specified parts of digestive tract; Z98.890 Other specified postprocedural states; Z98.84 Bariatric surgery status; Z87.891 Personal history of nicotine dependence; Z91.040 Latex allergy status; Z91.013 Allergy to seafood; Z88.5 Allergy status to narcotic agent; Z91.09 Other allergy status, other than to drugs and biological substances; Z91.010 Allergy to peanuts; Z88.8 Allergy status to other drugs, medicaments and biological substances
CPT/HCPCS: 77001; 36561; C1788; J2250; J1200; J1644; J1100; J2405; J0690; J2003; J3010; J2704

== ENCOUNTER → 2024-07-12 | Outpatient (CLI) | payer OTHER ==
--- NOTE | 2024-07-12 08:55 | XR ---
EXAMINATION TYPE: XR chest 2V DATE OF EXAM: 07/12/2024 8:41 AM COMPARISON: Chest radiographs from 07/06/2024. CLINICAL INDICATION: Female, 44 years old with history of R06.02 SOB; TECHNIQUE: XR chest 2V Frontal and lateral views of the chest. FINDINGS: Lungs/Pleura: There is no evidence of pleural effusion, focal consolidation, or pneumothorax. Pulmonary vascularity: Unremarkable. Heart/mediastinum: Cardiomediastinal silhouette is unremarkable. Musculoskeletal: No acute osseous pathology. Other findings: None Lines/Tubes: Afblvp-r-[id number] projecting over the left hemithorax with distal tip at the cavoatrial junction. IMPRESSION: No acute cardiopulmonary disease/process. [facility], , 07/12/2024 8:52 AM
--- NOTE | 2024-07-14 10:33 | PE ---
EXAMINATION TYPE: PET CT fusion skull to thigh DATE OF EXAM: 07/12/2024 CLINICAL INDICATION:Female, 44 years old with history of C50 Breast CA; TECHNIQUE: Following the intravenous administration of 10.18 mCi of F-18 FDG, whole body images are performed from the skull base to the Mid thigh. Images are reviewed on the computer in the coronal, axial, and sagittal planes. Reconstructed rotating images are created on independent workstation an d reviewed on the computer. A non-contrast CT is performed in conjunction with the PET scan. Glucos e level 93 mg/dL CT DLP: 637.16 mGycm, Automated exposure control for dose reduction was used. COMPARISON: CT 04/04/2020, PET/CT None, MRI: None FINDINGS: Mediastinal SUV mean is 2.15. Hepatic parenchyma SUV mean is 2.4. SKULL BASE AND NECK: Physiologic uptake within the tonsils and and sublingual glands which are symmetrical. CHEST, MEDIASTINUM, AND HILAR REGION: Suspicious uptake identified examples include: Prevascular space uptake near the Wuwvmj-n-Lqhv catheter max SUV 5.3. No FDG avid internal mammary or axillary or other lymph nodes are similarly visualized. There is at least 3 possibly 4 areas of uptake within the right breast. The these are all in the inne r aspect of the breast. Largest inferiorly posteriorly with biopsy clip in place max SUV 16.0 measuring 15 mm and slightly vallejo periorly which may be a separate lesion max SUV 6.7 measuring 10 mm Anterior superior to the previous lesions max SUV 4.6 measuring 13 15 mm and posterior superior axis SUV 7.6 measuring 11 mm. ABDOMEN AND PELVIS: Physiologic uptake along the gastric wall. MUSCULOSKELETAL STRUCTURES: Diffuse uptake throughout the skeletal structures likely secondary to colony stimulating factor medic ine OTHER CT: Gastric sleeve surgical changes. The gallbladder surgically absent. Small fat-containing um bilical hernia. Uterus appears surgically absent Klunxw-c-Shhq with tip in the superior vena cava. IMPRESSION: 1. 3 possibly 4 areas of abnormal uptake within the medial right breast. No enlarged FDG avid lymph nodes identified at this time. 2. Diffuse uptake throughout the skeletal structures likely secondary to colony stimulating factor m edicine [facility], , 07/14/2024 10:31 AM
== END | disposition home or self-care (01) ==
LOC: RADPETMAIN 06:26
PROVIDERS: ATTEND Radiology Radiation Oncology
DX: C50.811 Malignant neoplasm of overlapping sites of right female breast (principal); R06.02 Shortness of breath; K42.9 Umbilical hernia without obstruction or gangrene
CPT/HCPCS: 71046; 78815; A9552

== ENCOUNTER → 2024-10-05 | Outpatient (CLI) | payer OTHER ==
[2024-10-05 19:04] LABS: Basophils # (A) 0.02 X 10*3/uL (0.00-0.10); Basophils % (A) 0.5 %; Eosinophils # (A) 0.03 X 10*3/uL (0.04-0.35); Eosinophils % (A) 0.8 %; HCT 32.4 % (37.2-46.3); HGB 10.3 g/dL (12.0-15.0); Lymphocytes % (A) 26.5 %; MCH 29.2 pg (27.0-32.0); MCHC 31.8 g/dL (32.0-37.0); MCV 91.8 FL (80.0-97.0); Monocytes # (A) 0.45 X 10*3/uL (0.20-1.00); Monocytes % (A) 11.9 %; NRBC Per 100 WBC 0 X 10*3/uL (0.00-0.01); Neutrophils # (A) 2.25 X 10*3/uL (1.80-7.70); Neutrophils % (A) 59.8 %; Platelet Count 255 X 10*3/uL (140-440); RBC 3.53 X 10*6/uL (4.10-5.20); RDW 19.7 % (11.5-14.5); WBC 3.77 X 10*3/uL (4.50-10.00)
== END | disposition home or self-care (01) ==
LOC: LABWHC1 12:43
PROVIDERS: ATTEND Surgery
DX: Z01.812 Encounter for preprocedural laboratory examination (principal)
CPT/HCPCS: 36415; 85025; 86850; 86900; 86901

== ENCOUNTER 2024-11-17 11:39 | Observation (INO) | payer OTHER ==
--- NOTE | 2024-11-17 11:57 | ED ---
General Adult HPI - General Chief complaint: Chest Pain Stated complaint: Chest pain Time Seen by Provider: 11/17/24 11:44 Source: patient, family, RN notes reviewed Mode of arrival: ambulatory Limitations: no limitations - History of Present Illness Initial comments: Patient is a 44-year-old female present to the emergency department with concerns with chest discomfort. Onset of symptoms was around an hour prior to arrival. Patient has had some mild nausea and minimal cough for the past couple of days. Patient has been very fatigued yesterday. Chest discomfort worsened with exertion as well as deep breaths. Discomfort feels like burning. Patient has associated dyspnea. Patient did have bilateral mastectomy with spacers placed back around August. Patient was on chemotherapy for breast cancer, finished 2 months ago. - Related Data Previous Rx's Medication Instructions Recorded traMADol HCl [Ultram] 50 mg PO Q6H PRN #6 tab 07/06/24 Allergies Allergy/AdvReac Type Severity Reaction Status Date / Time adhesive Allergy blisters,red Verified 11/17/24 13:27 skin hydrocodone [From [place]] Allergy Anaphylaxis Verified 11/17/24 13:27 hydrocodone bitartrate Allergy Anaphylaxis Verified 11/17/24 13:27 [From Vicodin] iodine Allergy Rash/Hives Verified 11/17/24 13:27 latex Allergy Rash/Hives Verified 11/17/24 13:27 peanut Allergy Anaphylaxis Verified 11/17/24 13:27 shellfish derived [Shellfish] Allergy Swelling Verified 11/17/24 13:27 Review of Systems ROS Statement: Those systems with pertinent positive or pertinent negative responses have been documented in the HPI. ROS Other: All systems not noted in ROS Statement are negative. Constitutional: Denies: fever Eyes: Denies: eye pain ENT: Denies: ear pain Respiratory: Reports: as per HPI Cardiovascular: Reports: as per HPI, chest pain Endocrine: Reports: fatigue Gastrointestinal: Reports: nausea. Denies: abdominal pain, vomiting Musculoskeletal: Denies: back pain Past Medical History Past Medical History: Cancer, Osteoarthritis (OA), Sleep Apnea/CPAP/BIPAP, Thyroid Disorder Additional Past Medical History / Comment(s): Current right breast cancer with pain, states pain in left breast last 2 days, thyroid nodules, hx anemia, migra rose, Sleep Apnea- no machine, neck and lower back pain, IBS, low blood pressure. History of Any Multi-Drug Resistant Organisms: None Reported Past Surgical History: Cholecystectomy, Hysterectomy, Orthopedic Surgery, Tonsillectomy, Tubal Ligation Additional Past Surgical History / Comment(s): Right breast biopsy X2, left el bow surgery, cyst removed from neck, LT THYROID LOBECTOMY WITH FROZEN BX, gastric bypass. port a cath left chest- 2024 Past Anesthesia/Blood Transfusion Reactions: Postoperative Nausea & Vomiting (PONV) Additional Past Anesthesia/Blood Transfusion Reaction / Comment(s): PATIENT SOMETIMES HAS PONV AND MIGRAINE HEADACHE. GRANDMOTHER HAS PONV & MIGRAINES ALSO. Past Psychological History: Anxiety, Depression Smoking Status: Current every day smoker, Vaper Past Alcohol Use History: None Reported Past Drug Use History: None Reported - Past Family History Mother Family Medical History: Cancer Additional Family Medical History / Comment(s): MS. Father Family Medical History: Hyperlipidemia General Exam Limitations: no limitations General appearance: alert Head exam: Present: normocephalic Eye exam: Present: normal appearance Neck exam: Present: normal inspection Respiratory exam: Present: normal lung sounds bilaterally Cardiovascular Exam: Present: regular rate, normal rhythm, normal heart sounds Expanded Peripheral pulses: 2+: Radial (R), Radial (L), Dorsalis Pedis (R), Dorsalis Pedis (L) GI/Abdominal exam: Present: soft. Absent: tenderness, pulsatile mass Extremities exam: Present: normal inspection. Absent: pedal edema, calf tenderness Neurological exam: Present: alert. Absent: motor sensory deficit Psychiatric exam: Present: anxious Skin exam: Present: normal color. Absent: rash Course Vital Signs 11/17/24 11/17/24 11/17/24 11:40 11:55 12:12 Temperature 98.6 F Pulse Rate 105 H 95 101 H Pulse Rate [ 95 Black Off Worker ] Respiratory 20 18 26 H Rate Blood Pressure 128/85 120/76 100/58 O2 Sat by Pulse 100 97 98 Oximetry 11/17/24 11/17/24 13:02 13:17 Temperature Pulse Rate 81 82 Pulse Rate [ Black Off Worker ] Respiratory 28 H 18 Rate Blood Pressure 119/72 118/70 O2 Sat by Pulse 98 97 Oximetry EKG Findings - EKG Results: EKG: interpreted by ERMD, sinus rhythm, normal axis, normal QRS, normal ST/T Medical Decision Making - Medical Decision Making EKG #2 interpreted by myself shows sinus rhythm with a rate of 74. Normal i ntervals. Normal axis. Normal QRS. No acute ST change. Was pt. sent in by a medical professional or institution (TUAN Villarreal, CLINICAL BIOCHEMICAL GENETICIST, urgent care, hospital, or jail...) When possible be specific @ -No Did you speak to anyone other than the patient for history (EMS, parent, family, police, friend...)? What history was obtained from this source @ - present helps provide history as patient is uncomfortable and initial evaluation Did you review nursing and triage notes (agree or disagree)? Why? @ -I reviewed and agree with nursing and triage notes Were old charts reviewed (outside hosp., previous admission, EMS record, old EKG, old radiological studies, urgent care reports/EKG's, jail records)? Report findings @ -No old charts were reviewed Differential Diagnosis (chest pain, altered mental status, abdominal pain women, abdominal pain men, vaginal bleeding, weakness, fever, dyspnea, syncope, headache, dizziness, GI bleed, back pain, seizure, CVA, palpatations, mental health, musculoskeletal)? @ -Differential Chest Pain: Stable Angina, Unstable Angina, STEMI, NSTEMI Aortic Dissection, Pneumothorax, Musculoskeletal, Esophageal Spasm GERD, Cholecystitis, Pancreatitis, Zoster, this is not meant to be an all-inclusive list. EKG interpreted by me (3pts min.). @ -As above X-rays interpreted by me (1pt min.). @ -Chest x-ray shows no acute process, postoperative changes CT interpreted by me (1pt min.). @ -None done U/S interpreted by me (1pt. min.). @ -None done What testing was considered but not performed or refused? (CT, X-rays, U/S, labs)? Why? @ -CT scan ordered and is pending What meds were considered but not given or refused? Why? @ -None Did you discuss the management of the patient with other professionals (professionals i.e. TUAN Villarreal, CLINICAL BIOCHEMICAL GENETICIST, lab, RT, psych nurse, social secretary, histologist technologist, teacher, driver license reviewing officer, case coordinator)? Give summary @ -Case was discussed with Dr. Alfredo who will admit covering hospital call. He is made aware of pending CT scan. Was smoking cessation discussed for >3mins.? @ -No Was critical care preformed (if so, how long)? @ -No Were there social determinants of health that impacted care today? How? (Homelessness, low income, unemployed, alcoholism, drug addiction, transportation, low edu. Level, literacy, decrease access to med. care, [facility], rehab)? @ -No Was there de-escalation of care discussed even if they declined (Discuss DNR or withdrawal of care, Hospice)? DNR status @ -No What co-morbidities impacted this encounter? (DM, HTN, Smoking, COPD, CAD, Cancer, CVA, ARF, Chemo, Hep., AIDS, mental health diagnosis, sleep apnea, morbid obesity)? @ -Breast cancer with recent chemotherapy Was patient admitted / discharged? Hospital course, mention meds given and route, prescriptions, significant lab abnormalities, going to OR and other pertinent info. @ -Patient presents with chest discomfort on reevaluation symptoms have improved. Patient will be admitted with cardiac consult. Hume orders written. Patient and family updated. Undiagnosed new problem with uncertain prognosis? @ -No Drug Therapy requiring intensive monitoring for toxicity (Heparin, Nitro, Insulin, Cardizem)? @ -No Were any procedures done? @ -No Diagnosis/symptom? @ -Chest pain Acute, or Chronic, or Acute on Chronic? @ -Acute Uncomplicated (without systemic symptoms) or Complicated (systemic symptoms)? @ -Default Side effects of treatment? @ -No Exacerbation, Progression, or Severe Exacerbation? @ -No Poses a threat to life or bodily function? How? (Chest pain, [place], [place], pneumonia, PE, COPD, DKA, ARF, appy, cholecystitis, CVA, Diverticulitis, Homicidal, Suicidal, threat to staff... and all critical care pts) @ -No - Lab Data Result diagrams: 11/17/24 12:00 11/17/24 12:00 Lab Results 11/17/24 11/17/24 11/17/24 Range/Units 12:00 12:00 12:00 WBC 4.03 L (4.50-10.00) 10*3/uL RBC 3.86 L (4.10-5.20) 10*6/uL Hgb 10.7 L (12.0-15.0) g/dL Hct 33.6 L (37.2-46.3) % MCV 87.0 (80.0-97.0) fL MCH 27.7 (27.0-32.0) pg MCHC 31.8 L (32.0-37.0) g/dL Plt Count 281 (140-440) 10*3/uL MPV 8.8 L (9.5-12.2) fL Immature Gran % (Auto) 0.2 % Neutrophils % 62.1 % Lymphocytes % 20.6 % Monocytes % 9.4 % Eosinophils % 7.2 % Basophils % 0.5 % Immature Gran # 0.01 (0.00-0.04) 10*3/uL Neutrophils # 2.50 (1.80-7.70) 10*3/uL Lymphocytes # 0.83 L (0.90-5.00) 10*3/uL Monocytes # 0.38 (0.20-1.00) 10*3/uL Eosinophils # 0.29 (0.04-0.35) 10*3/uL Basophils # 0.02 (0.00-0.10) 10*3/uL PT 10.6 (10.0-12.5) sec INR 0.9 (<1.2) APTT 22.6 (22.0-30.0) sec D-Dimer 1.69 H (<0.60) mg/L FEU Sodium 138 (137-145) mmol/L Potassium 4.7 (3.5-5.1) mmol/L Chloride 101 (98-107) mmol/L Carbon Dioxide 27 (22-30) mmol/L Anion Gap 10 mmol/L BUN 15 (7-17) mg/dL Creatinine 0.70 (0.52-1.04) mg/dL Est GFR (CKD-EPI)AfAm >90 (>60 ml/min/1.73 sqM) Est GFR (CKD-EPI)NonAf >90 (>60 ml/min/1.73 sqM) Glucose 97 (74-99) mg/dL Calcium 9.6 (8.4-10.2) mg/dL Magnesium 1.8 (1.6-2.3) mg/dL Total Bilirubin 0.7 (0.2-1.3) mg/dL AST 33 (14-36) U/L ALT 22 (4-34) U/L Alkaline Phosphatase 68 (38-126) U/L Troponin I (0.000-0.034) ng/mL NT-Pro-B Natriuret Pep <20 pg/mL Total Protein 7.6 (6.3-8.2) g/dL Albumin 4.6 (3.5-5.0) g/dL Amylase 64 (30-110) U/L Lipase 131 (23-300) U/L // Range/Units 12:00 WBC (4.50-10.00) 10*3/uL RBC (4.10-5.20) 10*6/uL Hgb (12.0-15.0) g/dL Hct (37.2-46.3) % MCV (80.0-97.0) fL MCH (27.0-32.0) pg MCHC (32.0-37.0) g/dL Plt Count (140-440) 10*3/uL MPV (9.5-12.2) fL Immature Gran % (Auto) % Neutrophils % % Lymphocytes % % Monocytes % % Eosinophils % % Basophils % % Immature Gran # (0.00-0.04) 10*3/uL Neutrophils # (1.80-7.70) 10*3/uL Lymphocytes # (0.90-5.00) 10*3/uL Monocytes # (0.20-1.00) 10*3/uL Eosinophils # (0.04-0.35) 10*3/uL Basophils # (0.00-0.10) 10*3/uL PT (10.0-12.5) sec INR (<1.2) APTT (22.0-30.0) sec D-Dimer (<0.60) mg/L FEU Sodium (137-145) mmol/L Potassium (3.5-5.1) mmol/L Chloride (98-107) mmol/L Carbon Dioxide (22-30) mmol/L Anion Gap mmol/L BUN (7-17) mg/dL Creatinine (0.52-1.04) mg/dL Est GFR (CKD-EPI)AfAm (>60 ml/min/1.73 sqM) Est GFR (CKD-EPI)NonAf (>60 ml/min/1.73 sqM) Glucose (74-99) mg/dL Calcium (8.4-10.2) mg/dL Magnesium (1.6-2.3) mg/dL Total Bilirubin (0.2-1.3) mg/dL AST (14-36) U/L ALT (4-34) U/L Alkaline Phosphatase (38-126) U/L Troponin I <0.012 (0.000-0.034) ng/mL NT-Pro-B Natriuret Pep pg/mL Total Protein (6.3-8.2) g/dL Albumin (3.5-5.0) g/dL Amylase (30-110) U/L Lipase (23-300) U/L Disposition Clinical Impression: Chest pain Disposition: ADMITTED IP TO THIS HOSP Is patient prescribed a controlled substance at d/c from ED?: No Referrals: None,Stated [Primary Care Provider] - 1-2 days Time of Disposition: 15:19
[2024-11-17] MEDS: ONDANSETRON 4 MG/2 ML VIAL IVP STA ×2 (12:02→13:06)
[2024-11-17] MEDS: ASPIRIN 81 MG PO STA (12:03)
[2024-11-17] MEDS: NITROGLYCERIN SL TABS 0.4 MG TAB SUBLINGUAL STA (12:03)
[2024-11-17] MEDS: MORPHINE SULFATE 4 MG/ML SYRINGE IVP STA (12:14)
[2024-11-17 12:22] LABS: Basophils # (A) 0.02 10*3/uL (0.00-0.10); Basophils % (A) 0.5 %; Eosinophils # (A) 0.29 10*3/uL (0.04-0.35); Eosinophils % (A) 7.2 %; HCT 33.6 % (37.2-46.3); HGB 10.7 g/dL (12.0-15.0); Lymphocytes # (A) 0.83 10*3/uL (0.90-5.00); Lymphocytes % (A) 20.6 %; MCH 27.7 pg (27.0-32.0); MCHC 31.8 g/dL (32.0-37.0); MCV 87.0 fL (80.0-97.0); Monocytes # (A) 0.38 10*3/uL (0.20-1.00); Monocytes % (A) 9.4 %; Neutrophils # (A) 2.50 10*3/uL (1.80-7.70); Neutrophils % (A) 62.1 %; Platelet Count 281 10*3/uL (140-440); RBC 3.86 10*6/uL (4.10-5.20); RDW 14.7 % (11.5-14.5); WBC 4.03 10*3/uL (4.50-10.00)
--- NOTE | 2024-11-17 12:29 | XR ---
EXAMINATION TYPE: XR chest 2V DATE OF EXAM: 11/17/2024 12:23 PM COMPARISON: 07/12/2024 CLINICAL INDICATION: Female, 44 years old with history of Chest Pain, Chest pain TECHNIQUE: XR chest 2V views of the chest are obtained. FINDINGS: There is no focal air space opacity. No evidence for pneumothorax. No pleural effusion. The cardiac silhouette size is within normal limits. The osseous structures are grossly intact. IMPRESSION: 1. No acute cardiopulmonary process. [facility], , 11/17/2024 12:26 PM
[2024-11-17 12:36] LABS: ALT 22 U/L (4-34); AST 33 U/L (14-36); African American GFR (CKD) >90 (>60 ml/min/1.73 sqM); Albumin 4.6 g/dL (3.5-5.0); Alkaline Phosphatase 68 U/L (38-126); Amylase 64 U/L (30-110); Anion Gap 10 mmol/L; Blood Urea Nitrogen 15 mg/dL (7-17); Calcium 9.6 mg/dL (8.4-10.2); Carbon Dioxide 27 mmol/L (22-30); Chloride 101 mmol/L (98-107); Glucose 97 mg/dL (74-99); Lipase 131 U/L (23-300); Magnesium 1.8 mg/dL (1.6-2.3); Non-African American GFR(CKD) >90 (>60 ml/min/1.73 sqM); Potassium 4.7 mmol/L (3.5-5.1); Sodium 138 mmol/L (137-145); Total Protein 7.6 g/dL (6.3-8.2)
[2024-11-17 12:45] LABS: NT-Pro-B-Type Natriuretic Pept <20 pg/mL
[2024-11-17 12:55] LABS: INR 0.9 (<1.2); Partial Thromboplastin Time 22.6 sec (22.0-30.0); Prothrombin Time 10.6 sec (10.0-12.5)
[2024-11-17] MEDS: LORazepam 1 MG/0.5 ML VIAL IV STA (13:06)
[2024-11-17] MEDS: FAMOTIDINE 20 MG/2 ML VIAL IV STA (13:07)
[2024-11-17] MEDS: methylPREDNISolone SOD SUCCI 125 MG/2 ML VIAL IV STA (13:20)
[2024-11-17] MEDS: diphenhydrAMINE 50 MG/ML 1 ML VIAL IVP STA (13:22)
[2024-11-17] MEDS ORDERED: NITROGLYCERIN SL TABS 0.4 MG TAB SUBLINGUAL PRN (15:19)
[2024-11-17] MEDS ORDERED: ONDANSETRON 4 MG/2 ML VIAL IVP PRN (15:20)
[2024-11-17] MEDS ORDERED: traMADol 50 MG TAB PO PRN (15:21)
--- NOTE | 2024-11-17 15:41 | CT ---
EXAMINATION TYPE: CT noncontrast chest abdomen pelvis. CT angio thor/abd DATE OF EXAM: 11/17/2024 2:34 PM COMPARISON: Prior CT abdomen/pelvis study dated 09/15/2024.. CLINICAL INDICATION: Female, 44 years old with history of cp; PHH, chest/abd pain TECHNIQUE: Noncontrast CT chest followed by CT angiogram chest abdomen pelvis. A noncontrast CT chest Multiple a xial CT images of the chest, abdomen, and pelvis were obtained prior to and after the administration of IV contrast. 3-D reformats and maximum intensity projection format were performed on a separate [employer] rkstation. . Contrast used:100 mL of Isovue 370 with IV Contrast, CT DLP: 1243.3 mGycm, Automated exposure control for dose reduction was used. FINDINGS: ARTERIAL VASCULATURE: Ascending thoracic aorta and descending thoracic aorta are within normal limits for size. There is no evidence for intramural hematoma within the aorta on noncontrast imaging. Post contrast imaging demonstrates no evidence for dissection. The major vessels of the aortic arch are pa tent. The major vessels of the abdominal aorta are patent. PULMONARY ARTERIAL VASCULATURE: Normal caliber. No evidence of filling defect to suggest pulmonary em bolus. VENOUS SYSTEM: Unremarkable. LUNGS/ PLEURA: No focal consolidation, pneumothorax or pleural effusion. AIRWAY: Patent and unremarkable. HEART: Size within normal limits. MEDIASTINUM: No gross evidence of adenopathy. MUSCULOSKELETAL: No acute osseous abnormalities. Bilateral breast implants in place with evidence of mastectomy changes. SOFT TISSUES/LYMPH NODES: Unremarkable. LOWER NECK: No significant findings. Abdomen: LIVER: Unremarkable GALLBLADDER AND BILE DUCTS: The gallbladder is surgically absent. PANCREAS: Unremarkable. SPLEEN: Unremarkable. ADRENAL GLANDS: Unremarkable. KIDNEYS AND URETERS: No evidence of hydronephrosis or renal calculus. The ureters are unremarkable. ABDOMEN STOMACH AND BOWEL: Sleeve gastrectomy. No evidence of bowel obstruction. PERITONEUM/RETROPERITONEUM: No evidence of pneumoperitoneum or free fluid. MUSCULOSKELETAL: No acute osseous abnormalities LYMPH NODES: No gross evidence for lymphadenopathy. SOFT TISSUE/ABDOMINAL WALL: Unremarkable IMPRESSION: No acute abnormality in the chest or abdomen. Specifically, no evidence of aortic aneurysm, dissectio n or occlusion. [facility], , 11/17/2024 3:39 PM
--- NOTE | 2024-11-17 16:25 | P.HPIM ---
History of Present Illness H&P Date: 11/17/24 History of Presenting Illness: Patient is a very pleasant 44-year-old female with a past medical history of thyroid cancer status post partial thyroidectomy, breast cancer completed 6-week course of chemotherapy 09/09/24 and underwent bilateral mastectomy on 10/12/2024. She presented to our facility with a chief complaint of nausea and chest pain. Patient reports nausea and dry heaves began evening and have remained persistent with her being unable to tolerate oral intake since this began. Patient reports this morning just feeling tired and nauseous when she developed a sharp pain to her midsternal chest. Patient reports this was persistent and unrelenting for an hour and is worsened with exertion and feels as though she cannot take a deep breath. Upon arrival to our facility, patient underwent evaluation in the emergency department. Vital signs upon arrival show blood pressure 128/85, heart rate 105, respiratory rate 20, temp 98.6 F, and SpO2 100% on room air. EKG completed showing normal sinus rhythm at 97 bpm. Chest x-ray negative for acute cardiopulmonary process. Labs completed and reviewed. CBC showing bicytopenia with WBC count of 4.03 and hemoglobin of 10.7. Coagulation profile showing elevated D-dimer 1.69. BMP unremarkable. Blood glucose 97. Calcium 9.6. Magnesium 1.8. Liver profile normal findings. Troponin negative at less than 0.012 and proBNP less than 20. Amylase and lipase normal findings. CTA chest and abdomen negative for acute process showing no evidence of pulmonary emboli and no acute abnormality in the chest or abdomen. Patient admitted under our services with consultation to cardiology. Review of systems: Pertinent positives and negatives as discussed in HPI, a complete review of systems was performed and all other systems are negative. Physical exam: Vital signs reviewed and stable. General: Nontoxic, no distress and appears stated age. Derm: Skin warm and dry, normal coloration for ethnicity. Mastectomy incisions appear to be healing well with no surrounding erythema or warmth Head: Atraumatic, normocephalic and symmetric. Eyes: EOM's intact, no lid lag, and anicteric sclera Mouth: no lip lesions, mucus membranes moist Cardiovascular: regular rate and rhythm with normal S1S2, no murmur, positive p osterior tibial pulses bilaterally, and cap refill < 2 seconds. Lungs: Respirations even, regular, and unlabored on room air. Lungs CTA bilaterally, no rhonchi, no rales, no wheezing, and no accessory muscle usage. Abdominal: soft, nontender to palpation, no guarding, no appreciable organomegaly Ext: ROM intact. No gross muscle atrophy, no edema, no contractures Neuro: Speech clear, face symmetrical and CN II-XII grossly intact with no noted focal neuro deficits Psych: Alert and oriented to person, place, time, and situation. Appropriate and pleasant affect. Assessment and Plan of Care: Chest pain, rule out acute coronary event Intractable nausea with dry heaves Breast cancer status post completion of chemotherapy and bilateral mastectomy in 10/12/2024 Bicytopenia Elevated D-dimer, CTA negative for PE -Cardiology consulted, appreciate recommendations -Telemetry monitoring -Trend troponins -Cardiac diet -Aspirin 81 mg daily and atorvastatin 40 mg -Lipid profile with a.m. labs. -GI prophylaxis with Pepcid 20 mg IV every 12 hours. -Antiemetic with Compazine 10 mg IVP every 6 hours as needed for nausea. Data and imaging reviewed: As stated above in HPI The patient is admitted with an anticipated less than 2 midnight stay for evaluation of chest pain and intractable nausea CODE STATUS: Full code DVT prophylaxis: Lovenox Discussed with: Patient, patient's spouse at bedside, RN, and ED physician. Anticipated discharge date: Pending clinical course, likely within the next [address]: Home Patient was seen independently by Nurse Practitioner. This document was prepared using [employer] dictation software. Please allow for errors in automobile body repairer while rare they do occur. John El NP rendered care for this patient independently, reviewed the findings and plan as documented in the note above and agree with plan. I did not physically speak with or examine the patient on this date. Past Medical History Past Medical History: Cancer, Osteoarthritis (OA), Sleep Apnea/CPAP/BIPAP, Thyroid Disorder Additional Past Medical History / Comment(s): Current right breast cancer with pain, states pain in left breast last 2 days, thyroid nodules, hx anemia, migraines, Sleep Apnea- no machine, neck and lower back pain, IBS, low blood pressure. History of Any Multi-Drug Resistant Organisms: None Reported Past Surgical History: Cholecystectomy, Hysterectomy, Orthopedic Surgery, Tonsillectomy, Tubal Ligation Additional Past Surgical History / Comment(s): Right breast biopsy X2, left elbow surgery, cyst removed from neck, LT THYROID LOBECTOMY WITH FROZEN BX, gastric bypass. port a cath left chest- 2024 Past Anesthesia/Blood Transfusion Reactions: Postoperative Nausea & Vomiting (PONV) Additional Past Anesthesia/Blood Transfusion Reaction / Comment(s): PATIENT SOMETIMES HAS PONV AND MIGRAINE HEADACHE. GRANDMOTHER HAS PONV & MIGRAINES ALSO. Past Psychological History: Anxiety, Depression Smoking Status: Current every day smoker, Vaper Past Alcohol Use History: None Reported Past Drug Use History: None Reported - Past Family History Mother Family Medical History: Cancer Additional Family Medical History / Comment(s): MS. Father Family Medical History: Hyperlipidemia Medications and Allergies Home Medications Medication Instructions Recorded Confirmed Type traMADol HCl [Ultram] 50 mg PO Q6H PRN #6 tab 07/06/24 11/17/24 Rx Allergies Allergy/AdvReac Type Severity Reaction Status Date / Time adhesive Allergy blisters,red Verified 11/17/24 13:27 skin hydrocodone [From [place]] Allergy Anaphylaxis Verified 11/17/24 13:27 hydrocodone bitartrate Allergy Anaphylaxis Verified 11/17/24 13:27 [From Vicodin] iodine Allergy Rash/Hives Verified 11/17/24 13:27 latex Allergy Rash/Hives Verified 11/17/24 13:27 peanut Allergy Anaphylaxis Verified 11/17/24 13:27 shellfish derived [Shellfish] Allergy Swelling Verified 11/17/24 13:27 Physical Exam Vitals: Vital Signs Temp Pulse Pulse Resp BP Pulse Ox 11/17/24 16:00 72 20 96/58 96 11/17/24 13:17 82 18 118/70 97 11/17/24 13:02 81 28 H 119/72 98 11/17/24 12:12 101 H 26 H 100/58 98 11/17/24 11:55 95 95 18 120/76 97 11/17/24 11:40 98.6 F 105 H 20 128/85 100 Intake and Output 11/17/24 11/17/24 11/17/24 06:59 14:59 22:59 Other: Weight 92.079 kg Results CBC & Chem 7: 11/17/24 12:00 11/17/24 12:00 Labs: Abnormal Lab Results - Last 24 Hours (Table) 11/17/24 11/17/24 Range/Units 12:00 12:00 WBC 4.03 L (4.50-10.00) 10*3/uL RBC 3.86 L (4.10-5.20) 10*6/uL Hgb 10.7 L (12.0-15.0) g/dL Hct 33.6 L (37.2-46.3) % MCHC 31.8 L (32.0-37.0) g/dL MPV 8.8 L (9.5-12.2) fL Lymphocytes # 0.83 L (0.90-5.00) 10*3/uL D-Dimer 1.69 H (<0.60) mg/L FEU
[2024-11-17] MEDS ORDERED: ACETAMINOPHEN TAB 325 MG TAB PO PRN (17:47)
[2024-11-17] MEDS: PROCHLORPERAZINE INJ 10 MG/2 ML VIAL IVP PRN (18:41)
[2024-11-17] MEDS: ATORVASTATIN 40 MG TAB PO SCH (21:43)
[2024-11-17] MEDS: FAMOTIDINE 20 MG/2 ML VIAL IV SCH (21:43)
[2024-11-18 05:20] VITALS: PULSE 63; RESP 16; TEMP 97.7
[2024-11-18 07:49] LABS: HCT 29.0 % (37.2-46.3); HGB 9.3 g/dL (12.0-15.0); MCH 27.9 pg (27.0-32.0); MCHC 32.1 g/dL (32.0-37.0); MCV 87.1 fL (80.0-97.0); Platelet Count 276 10*3/uL (140-440); RBC 3.33 10*6/uL (4.10-5.20); RDW 14.2 % (11.5-14.5); WBC 4.29 10*3/uL (4.50-10.00)
[2024-11-18 07:54] VITALS: BP 99/65
[2024-11-18 08:12] LABS: African American GFR (CKD) >90 (>60 ml/min/1.73 sqM); Anion Gap 7 mmol/L; Blood Urea Nitrogen 19 mg/dL (7-17); Calcium 9.2 mg/dL (8.4-10.2); Carbon Dioxide 25 mmol/L (22-30); Chloride 104 mmol/L (98-107); Glucose 107 mg/dL (74-99); Non-African American GFR(CKD) >90 (>60 ml/min/1.73 sqM); Potassium 4.4 mmol/L (3.5-5.1); Sodium 136 mmol/L (137-145)
[2024-11-18] MEDS ORDERED: ASPIRIN 325 MG TAB PO SCH (09:00)
[2024-11-18] MEDS: ENOXAPARIN 40 MG/0.4 ML SYRINGE SQ SCH (10:53)
[2024-11-18] MEDS: ASPIRIN 81 MG PO SCH (10:53)
[2024-11-18 13:13] LABS: Cholesterol 182.00 mg/dL (0.00-200.00); HDL Cholesterol 62.90 mg/dL (40.00-60.00); LDL Cholesterol,Calculated 103.2 mg/dL (0.0-131.0); Triglycerides 79.70 mg/dL (0.00-149.00); VLDL Calculation 15.94 mg/dL (5.00-40.00)
--- NOTE | 2024-11-18 13:24 | P.DS ---
Providers Date of admission: 11/17/24 15:21 Expected date of discharge: 11/18/24 Attending physician: Nico Malhotra MD Consults: 11/17/24 15:19 Consult Physician Urgent Consulting Provider: Moe Denton Consult Reason/Comments: cp Do you want consulting provider notified?: Yes Primary care physician: Stated None Hospital Course: Discharge Diagnosis: Chest pain, acute coronary event ruled out Intractable nausea with dry heaves. Resolved. Patient tolerating oral intake with no further episodes of nausea or vomiting/dry heaves. He is not received any further antiemetics since yesterday evening. Patient refusing Pepcid that was ordered for GI prophylaxis and refused aspirin as ordered for patient's initial complaint of chest pain. Breast cancer status post completion of chemotherapy and bilateral mastectomy in 10/12/2024 Bicytopenia Elevated D-dimer, CTA negative for PE Hospital Course: Patient is a very pleasant 44-year-old female with a past medical history of thyroid cancer status post partial thyroidectomy, breast cancer completed 6-week course of chemotherapy 09/09/24 and underwent bilateral mastectomy on 10/12/2024. She presented to our facility with a chief complaint of nausea and chest pain. Patient reports nausea and dry heaves began evening and have remained persistent with her being unable to tolerate oral intake since this began. Patient reports this morning just feeling tired and nauseous when she developed a sharp pain to her midsternal chest. Patient reports this was persistent and unrelenting for an hour and is worsened with exertion and feels as though she cannot take a deep breath. Upon arrival to our facility, patient underwent evaluation in the emergency department. Vital signs upon arrival show blood pressure 128/85, heart rate 105, respiratory rate 20, temp 98.6 F, and SpO2 100% on room air. EKG completed showing normal sinus rhythm at 97 bpm. Chest x-ray negative for acute cardiopulmonary process. Labs completed and reviewed. CBC showing bicytopenia with WBC count of 4.03 and hemoglobin of 10.7. Coagulation profile showing elevated D-dimer 1.69. BMP unremarkable. Blood glucose 97. Calcium 9.6. Magnesium 1.8. Liver profile normal findings. Troponin negative at less than 0.012 and proBNP less than 20. Amylase and lipase normal findings. CTA chest and abdomen negative for acute process showing no evidence of pulmonary emboli and no acute abnormality in the chest or abdomen. Patient admitted under our services with consultation to cardiology. Troponins were trended overnight. Resulting at less than 0.012 x 3 draws. Lipid profile unremarkable. Patient reports full resolution of nausea and chest pain. She was evaluated by cardiology, clearing patient from cardiac perspective for discharge. Recommending outpatient follow-up in their office in 1 to 2 weeks. Patient is medically optimized for discharge at this time. To follow-up with PCP in 1 to 2 days and with geological specialist in 1 to 2 weeks. Patient to continue to follow-up outpatient with oncology for continued management of breast cancer. Physical exam: Vital signs reviewed and stable. General: Nontoxic, no distress and appears stated age. Derm: Skin warm and dry, normal coloration for ethnicity. Mastectomy incisions appear to be healing well with no surrounding erythema or warmth Head: Atraumatic, normocephalic and symmetric. Eyes: EOM's intact, no lid lag, and anicteric sclera Mouth: no lip lesions, mucus membranes moist Cardiovascular: regular rate and rhythm with normal S1S2, no murmur, positive posterior tibial pulses bilaterally, and cap refill < 2 seconds. Lungs: Respirations even, regular, and unlabored on room air. Lungs CTA bilaterally, no rhonchi, no rales, no wheezing, and no accessory muscle usage. Abdominal: soft, nontender to palpation, no guarding, no appreciable organomegaly Ext: ROM intact. No gross muscle atrophy, no edema, no contractures Neuro: Speech clear, face symmetrical and CN II-XII grossly intact with no noted focal neuro deficits Psych: Alert and oriented to person, place, time, and situation. Appropriate and pleasant affect. A total of 34 minutes of time were spent preparing this complex discharge summary. Pt was discharged on 11/18/2024 at 1:10 PM. Patient was seen independently by Nurse Practitioner. This document was prepared using [employer] dictation software. Please allow for errors in electronic wirer while rare they do occur. John El NP rendered care for this patient independently, reviewed the findings and plan as documented in the note above. I did not physically speak with or examine the patient on this date. Patient Condition at Discharge: Stable Plan - Discharge Summary New Discharge Prescriptions: Continue traMADol HCl [Ultram] 50 mg PO Q6H PRN #6 tab PRN Reason: Pain Discharge Medication List traMADol HCl [Ultram] 50 mg PO Q6H PRN #6 tab 07/06/24 [Rx] Follow up Appointment(s)/Referral(s): Moe Denton MD [Medical Doctor] - 1 Week (may follow up for outpatient echo and stress test) Jeison Leggett DO [REFERRING] - 1 Week Patient Instructions/Handouts: Chest Pain (DC) Discharge Disposition: HOME SELF-CARE
--- NOTE | 2024-11-18 17:35 | P.CRDCN ---
History of Present Illness Consult date: 11/18/24 History of present illness: HISTORY OF PRESENTING ILLNESS: 44-year-old with past medical history of thyroid cancer with partial thyroidectomy, breast cancer with completed 6 weeks of chemotherapy on 08/2024, underwent bilateral mastectomy on 10/12/2024 with chest wall reconstruction. She presented to the hospital because of substernal chest pressure which she describes as stabbing-like sensation starting from her mid chest going to the back. She had a CTA chest and abdomen done in the ER which was nonrevealing EKG showed normal sinus rhythm and was nonrevealing Chest x-ray did not show any acute signs of congestion or consolidation Hemoglobin was 10.7 and BUN/creatinine were WNL, troponins were negative NT- proBNP was normal, LDL 103, TG 79, HDL 62, mild his lipase was not elevated. ............................................................................ .................................................................. Prior cardiac testing: [ ] ..... ................................................................................ ......................................................... REVIEW OF SYSTEMS: 14 point review of system is negative except what is mentioned above in HPI. .................................................................. ............................................................................ PHYSICAL EXAMINATION: Neck: Brisk carotid upstroke, no jugular venous distention. Lungs: Clear to auscultation. Heart: Regular rate and rhythm, S1-S2, , no murmur or rub. Abdomen: Soft nontender, positive bowel sounds. Extremities: No edema, intact distal pulses. Neuro: Alert, oritented, no focal deficits. Detailed neuro exam was not performed. ........................................................................... ................................................................... ASSESSMENT: # Atypical chest pain, ACS has been ruled out. Most likely musculoskeletal # Bilateral breast cancer status post bilateral mastectomy 09/2024 # Thyroid breast and uterine cancer currently in remission # Last chemotherapy 08/2024 PLAN: Her chest pain is somewhat reproducible in the mid chest. Most likely related to musculoskeletal system less likely related to cardiac I did however recommend her to stay in the hospital to get a echo and a stress test done however patient is very eager to go home. She is not wanting to stay in the hospital understanding the risks of having any major cardiovascular events if not getting tested for it I will give her my office details to her to have her follow-up with me Moe Denton MD, FACC, RPVI Past Medical History Past Medical History: Cancer, Osteoarthritis (OA), Sleep Apnea/CPAP/BIPAP, Thyroid Disorder Additional Past Medical History / Comment(s): Current right breast cancer with pain, states pain in left breast last 2 days, thyroid nodules, hx anemia, migraines, Sleep Apnea- no machine, neck and lower back pain, IBS, low blood pressure. thyroid cancer, cervical cancer History of Any Multi-Drug Resistant Organisms: None Reported Past Surgical History: Cholecystectomy, Hysterectomy, Orthopedic Surgery, Tonsillectomy, Tubal Ligation Additional Past Surgical History / Comment(s): Right breast biopsy X2, left elbow surgery, cyst removed from neck, LT THYROID LOBECTOMY WITH FROZEN BX, gastric bypass. port a cath left chest- 2024 bilateral mastectomy, thyroidectomy, hysterectomy Past Anesthesia/Blood Transfusion Reactions: Postoperative Nausea & Vomiting (PONV) Additional Past Anesthesia/Blood Transfusion Reaction / Comment(s): PATIENT SOMETIMES HAS PONV AND MIGRAINE HEADACHE. GRANDMOTHER HAS PONV & MIGRAINES ALSO. Past Psychological History: Anxiety, Depression Smoking Status: Current every day smoker, Vaper Past Alcohol Use History: None Reported Additional Past Alcohol Use History / Comment(s): Use to vape, quit , had vaped for 3 yrs. Very rare alcohol use. Past Drug Use History: None Reported - Past Family History Mother Family Medical History: Cancer Additional Family Medical History / Comment(s): MS. Father Family Medical History: Hyperlipidemia Medications and Allergies Home Medications Medication Instructions Recorded Confirmed Type traMADol HCl [Ultram] 50 mg PO Q6H PRN #6 tab 07/06/24 11/17/24 Rx Allergies Allergy/AdvReac Type Severity Reaction Status Date / Time adhesive Allergy blisters,red Verified 11/17/24 13:27 skin hydrocodone [From [place]] Allergy Anaphylaxis Verified 11/17/24 13:27 hydrocodone bitartrate Allergy Anaphylaxis Verified 11/17/24 13:27 [From Vicodin] iodine Allergy Rash/Hives Verified 11/17/24 13:27 latex Allergy Rash/Hives Verified 11/17/24 13:27 peanut Allergy Anaphylaxis Verified 11/17/24 13:27 shellfish derived [Shellfish] Allergy Swelling Verified 11/17/24 13:27 Physical Exam Vitals: Vital Signs Temp Pulse Pulse Resp BP BP Pulse Ox 11/18/24 07:52 97.7 F 63 16 99/65 98 11/18/24 05:18 97.7 F 63 16 104/65 96 11/17/24 20:06 76 18 110/64 98 11/17/24 18:27 81 18 101/70 96 Intake and Output 11/18/24 11/18/24 11/18/24 06:59 14:59 22:59 Other: Weight 92.079 kg Results 11/18/24 07:06 11/18/24 07:06 Cardiac Enzymes 11/17/24 11/17/24 Range/Units 16:44 20:45 Troponin I <0.012 <0.012 (0.000-0.034) ng/mL Lipids 11/18/24 Range/Units 07:06 Triglycerides 79.70 (0.00-149.00) mg/dL Cholesterol 182.00 (0.00-200.00) mg/dL HDL Cholesterol 62.90 H (40.00-60.00) mg/dL Cholesterol/HDL Ratio 2.89 Ratio CBC 11/18/24 Range/Units 07:06 WBC 4.29 L (4.50-10.00) 10*3/uL RBC 3.33 L (4.10-5.20) 10*6/uL Hgb 9.3 L (12.0-15.0) g/dL Hct 29.0 L (37.2-46.3) % Plt Count 276 (140-440) 10*3/uL Comprehensive Metabolic Panel 11/18/24 Range/Units 07:06 Sodium 136 L (137-145) mmol/L Potassium 4.4 (3.5-5.1) mmol/L Chloride 104 (98-107) mmol/L Carbon Dioxide 25 (22-30) mmol/L BUN 19 H (7-17) mg/dL Creatinine 0.74 (0.52-1.04) mg/dL Glucose 107 H (74-99) mg/dL Calcium 9.2 (8.4-10.2) mg/dL Intake and Output 11/18/24 11/18/24 11/18/24 06:59 14:59 22:59 Other: Weight 92.079 kg Patient Weight 11/19/24 06:59 Weight 92.079 kg 11/18/24 07:06 11/18/24 07:06
[2024-11-18] MEDS ORDERED: FAMOTIDINE 20 MG TAB PO SCH (21:00)
== END 2024-11-18 13:22 | disposition home or self-care (01) ==
LOC: EC 11:39 → 6NMEDSUR 15:21
PROVIDERS: ADMIT Family Medicine; ATTEND Family Medicine
DX: R07.89 Other chest pain (principal); R11.0 Nausea; R79.89 Other specified abnormal findings of blood chemistry; D75.9 Disease of blood and blood-forming organs, unspecified; C50.911 Malignant neoplasm of unspecified site of right female breast; C50.912 Malignant neoplasm of unspecified site of left female breast; F41.9 Anxiety disorder, unspecified; Z85.3 Personal history of malignant neoplasm of breast; Z85.42 Personal history of malignant neoplasm of other parts of uterus; Z85.850 Personal history of malignant neoplasm of thyroid; Z90.13 Acquired absence of bilateral breasts and nipples; Z90.710 Acquired absence of both cervix and uterus; Z92.21 Personal history of antineoplastic chemotherapy; Z98.84 Bariatric surgery status; Z88.5 Allergy status to narcotic agent; Z88.8 Allergy status to other drugs, medicaments and biological substances; Z91.040 Latex allergy status
CPT/HCPCS: 96376; 96374; 96375; 99285; 36415; 93005; 85379; 83880; 80061; 80053; 80048; 82150; 83690; 83735; 84484; 85025; 85027; 85610; 85730; 71046; 71275; 74175; G0378 ×2; J2060; J2270; J0780; J2405; Q9967; J2919; J1308